=== PATIENT | female | born 1955 | race African-American/Black ===

== ENCOUNTER → 2016-08-17 | Outpatient (CLI) | payer MEDICAID ==
[2016-06-03 19:46] VITALS: BP 122/69
== END ==
LOC: RAD 20:30
PROVIDERS: ATTEND Internal Medicine
DX: R68.84 Jaw pain (principal); R22.0 Localized swelling, mass and lump, head

== ENCOUNTER → 2016-09-07 | Outpatient (CLI) | payer MEDICAID ==
[2016-06-03 19:46] VITALS: BP 122/69
--- NOTE | 2016-09-08 06:45 | RAD ---
Two views of the left hip Indication: Hip pain after fall. Findings: There is no acute fracture or dislocation within the left hip. Femoral acetabular joint sp aces are maintained. Pubic symphysis SI joints are intact. No localizing soft tissue swelling. Impression: No acute radiographic abnormality within the left hip. Reported By:
== END ==
LOC: RAD 15:29
PROVIDERS: ATTEND Internal Medicine
DX: M25.552 Pain in left hip (principal); Z91.81 History of falling
CPT/HCPCS: 73501

== ENCOUNTER 2016-11-16 12:05 | Emergency (ER) | payer MEDICAID ==
[2016-11-16 12:33] VITALS: BP 136/71; BMI 35.2
--- NOTE | 2016-11-16 13:29 | DR.GENAD ---
HPI - PCP Primary Care Physician: DR. GUTIÉRREZ - Complaint/Symptoms Chief Complaint Doctors Comments: Reproducible chest pain woth nausea since Sunday after her brothers . Chief Complaint:: PATIENT C/O CHEST PAIN SINCE LAST WEEK AND THAT YESTERDAY HER STOMACH HURT. RIGHT ARM PAIN. - Nurses notes reviewed Nurses Notes Review: Yes - Source History Provided: Patient, Skilled Nursing - Mode of Arrival Mode of Arrival: Stretcher - Timing Onset of Chief Complaint: 11/09/16 Came on: Gradually - Duration Duration: Intermittent - Severity Severity: Moderate - Modifying Factors Worsens:: touch to upper chest Improves:: rest - Associated Signs and Symptoms Associated Signs and Symptoms: right arm pain and nausea PMH - PMH Past Medical History: Yes Past Medical History: Anemia, Anxiety, Arthritis, Depression, Dyslipidemia, GERD , Hypertension, Kidney Stones, Seizures Past Surgical History: Yes Surgical History: Hysterectomy, Other - Family History History of Family Medical Conditions: Yes Family Medical History: Diabetes Mellitus, Heart Failure, Hypertension - Social History Does patient currently use any type of tobacco product: No Have you used tobacco products in the last 12 months: No Type of Tobacco Use: None Does any household member use tobacco: No Alcohol Use: None Do you use any recreational Drugs:: No Lives With: Other Lives Where: Skilled Nursing - infectious screening In the last 2 months have you had wt loss of >10#?: NO Have you had fever, night sweats or hemotysis?: No Have you traveled outside the country in the last 6 months?: No Isolation: Standard PE - Vital Signs Vitals: Temperature 97.6 F Pulse Rate 52 Respiratory Rate 20 Blood Pressure [Right Calf] 163/66 Blood Pressure [Right Arm] 105/67 Blood Pressure [Left Arm] 122/69 Blood Pressure 136/71 O2 Sat by Pulse Oximetry 99 ROR - Labs Reviewed Result Diagrams: 11/16/16 14:22 11/16/16 14:22 Laboratory: WBC 5.6 X10^3/uL (3.6-10.0) 11/16/16 14:22 RBC 3.97 X10^6/uL (3.5-5.4) 11/16/16 14:22 Hgb 11.2 g/dL (12.0-16.0) L 11/16/16 14:22 Hct 35.3 % (36.0-47.0) L 11/16/16 14:22 MCV 88.9 fL (80.0-100.0) 11/16/16 14:22 MCH 28.3 pg (27.0-34.0) 11/16/16 14:22 MCHC 31.9 g/dL (33.0-35.0) L 11/16/16 14:22 RDW 15.5 % (11.6-16.5) 11/16/16 14:22 Plt Count 130 X10^3/uL (150.0-450.0) L 11/16/16 14:22 MPV 9.0 fL (7.4-11.0) 11/16/16 14:22 Neut % 52.7 % (42.0-75.0) 11/16/16 14:22 Lymph % 33.2 % (21.0-51.0) 11/16/16 14:22 [place] % 11.8 % (0.0-13.0) 11/16/16 14:22 Eos % 2.0 % (0.9-2.9) 11/16/16 14:22 Baso % 0.3 % (0.2-1.0) 11/16/16 14:22 Neut # 2.9 x10^3/uL (2.2-4.8) 11/16/16 14:22 Lymph # 1.9 X10^3/uL (1.3-2.9) 11/16/16 14:22 [place] # 0.7 x10^3/uL (0.3-0.8) 11/16/16 14:22 Eos # 0.1 x10^3/uL (0.0-0.2) 11/16/16 14:22 Baso # 0.0 X10^3/uL (0.0-0.1) 11/16/16 14:22 Absolute Nucleated RBC 0.0 /100WBC 11/16/16 14:22 Sodium 143 mmol/L (136-145) 11/16/16 14:22 Corrected Sodium TNP 11/16/16 14:22 Potassium 4.2 mmol/L (3.5-5.1) 11/16/16 14:22 Chloride 109 mmol/L (98-107) H 11/16/16 14:22 Carbon Dioxide 27.0 mmol/L (21-32) 11/16/16 14:22 BUN 15 mg/dL (7-18) 11/16/16 14:22 Creatinine 0.74 mg/dL (0.55-1.02) 11/16/16 14:22 Est GFR (MDRD) Af Amer > 60 (>60) 11/16/16 14:22 Est GFR (MDRD) Non-Af > 60 (>60) 11/16/16 14:22 Glucose 81 mg/dL (65-99) 11/16/16 14:22 Calcium 8.5 mg/dL (8.5-10.1) 11/16/16 14:22 Corrected Calcium 9.1 mg/dL (8.5-10.1) 11/16/16 14:22 Total Bilirubin 0.30 mg/dL (0.2-1.0) 11/16/16 14:22 AST 14 Units/L (15-37) L 11/16/16 14:22 ALT 15 Units/L (12-78) 11/16/16 14:22 Alkaline Phosphatase 141 Units/L (46-116) H 11/16/16 14:22 Creatine Kinase 72 Units/L (26-192) 11/16/16 14:22 CK-MB (CK-2) < 1.0 ng/mL (0-4.0) 11/16/16 14:22 CK/CKMB % Calc 1.4 % (<4) 11/16/16 14:22 Troponin I < 0.02 ng/mL (0-1.5) 11/16/16 14:22 Total Protein 6.8 g/dL (6.4-8.2) 11/16/16 14:22 Albumin 3.3 g/dL (3.4-5.0) L 11/16/16 14:22 Globulin 3.5 g/dL (2.5-4.5) 11/16/16 14:22 Albumin/Globulin Ratio 0.9 Ratio (1.1-2.1) L 11/16/16 14:22 - Diagnosis Discharge Problem: Chest wall pain - Discharge Plan Disposition: 03 ER SNF Condition: Stable - Follow ups/Referrals Follow ups/Referrals: Jonathan Gutiérrez [Primary Care Provider] - 3 days - Instructions Instructions: Indigestion, [id number], Chest Wall Pain, [id number]
--- NOTE | 2016-11-16 14:06 | RAD ---
HISTORY: Chest pain Study: Chest one view Comparison: April 10, 2016 Findings: There is a port present on the right. Its tip is in the superior vena cava. The port follows a somew hat unusual course and clinical correlation as to proper function is recommended. The heart is enlar ged. No congestive heart failure is noted. The lungs are hypoinflated but clear. The bony thorax is unremarkable. IMPRESSION: Mild cardiomegaly without congestive heart failure Lungs hypoinflated but clear The course of the right port tube is somewhat unusual. Correlation as to the presence or absence of proper function is recommended. Reported By:
[2016-11-16 14:31] LABS: BASOPHILS % (AUTO) 0.3 % (0.2-1.0); EOSINOPHILS # (AUTO) 0.1 x10^3/uL (0.0-0.2); HEMATOCRIT 35.3 % (36.0-47.0); HEMOGLOBIN 11.2 g/dL (12.0-16.0); LYMPHOCYTES # (AUTO) 1.9 X10^3/uL (1.3-2.9); LYMPHOCYTES % (AUTO) 33.2 % (21.0-51.0); MEAN CORPUSCULAR HEMOGLOBIN 28.3 pg (27.0-34.0); MEAN CORPUSCULAR HGB CONC 31.9 g/dL (33.0-35.0); MEAN CORPUSCULAR VOLUME 88.9 fL (80.0-100.0); MONOCYTES # (AUTO) 0.7 x10^3/uL (0.3-0.8); MONOCYTES % (AUTO) 11.8 % (0.0-13.0); NEUTROPHILS # (AUTO) 2.9 x10^3/uL (2.2-4.8); NEUTROPHILS % (AUTO) 52.7 % (42.0-75.0); PLATELET COUNT 130 X10^3/uL (150.0-450.0); RED BLOOD COUNT 3.97 X10^6/uL (3.5-5.4); RED CELL DISTRIBUTION WIDTH 15.5 % (11.6-16.5); WHITE BLOOD COUNT 5.6 X10^3/uL (3.6-10.0)
[2016-11-16 14:48] LABS: BLOOD UREA NITROGEN 15 mg/dL (7-18); CALCIUM 8.5 mg/dL (8.5-10.1); CHLORIDE 109 mmol/L (98-107); CREATININE 0.74 mg/dL (0.55-1.02); GLUCOSE 81 mg/dL (65-99); SODIUM 143 mmol/L (136-145); TROPONIN I < 0.02 ng/mL (0-1.5); eGFR BLACK RACES > 60 (>60); eGFR NON BLACK RACES > 60 (>60)
[2016-11-16 14:53] LABS: ALANINE AMINOTRANSFERASE 15 Units/L (12-78); ALBUMIN 3.3 g/dL (3.4-5.0); ALKALINE PHOSPHATASE 141 Units/L (46-116); ASPARTATE AMINO TRANSFERASE 14 Units/L (15-37); CKMB % 1.4 % (<4); COR CA(FOR HYPOALB) 9.1 mg/dL (8.5-10.1); CREATINE KINASE 72 Units/L (26-192); CREATINE KINASE MB < 1.0 ng/mL (0-4.0); TOTAL PROTEIN 6.8 g/dL (6.4-8.2)
== END 2016-11-16 15:37 ==
LOC: ER 12:30
DX: R07.89 Other chest pain (principal); I51.7 Cardiomegaly
CPT/HCPCS: 36415; 36591; 71010; 80053; 82550; 82553; 84484; 85025; 93005; 96365; 96374; 99283

== ENCOUNTER → 2016-11-20 | Outpatient (CLI) | payer MEDICAID ==
[2016-11-16 12:33] VITALS: BP 136/71
--- NOTE | 2016-11-20 16:38 | RAD ---
HISTORY: Left shoulder pain status post fall Study: Left shoulder three view Comparison: None Findings: The clavicle, AC joint, scapula, glenohumeral joint, and proximal left humerus are intact. There is a fracture of the left lateral 3rd rib present. Impression: Fracture left lateral 3rd rib No significant abnormality in the shoulder Reported By:
== END ==
LOC: RAD 16:00
PROVIDERS: ATTEND Internal Medicine
DX: M25.512 Pain in left shoulder (principal); S22.32XA Fracture of one rib, left side, initial encounter for closed fracture; X58.XXXA Exposure to other specified factors, initial encounter
CPT/HCPCS: 73030

== ENCOUNTER → 2017-01-01 | Outpatient (CLI) | payer MEDICAID ==
--- NOTE | 2017-01-01 16:23 | RAD ---
HISTORY: Right posterior rib pain Study: Right rib series Comparison: 11/16/2016 Findings: There is a right IJ port noted. The lungs are clear without consolidation, effusion or pneumothorax. The cardiac and mediastinal contours are within normal limits. No definite displaced rib fracture is identified. The bony thorax appears intact. IMPRESSION: 1. No displaced rib fracture identified. 2. No acute cardiopulmonary abnormality. Reported By:
== END ==
LOC: RAD 15:12
PROVIDERS: ATTEND Internal Medicine
DX: R07.81 Pleurodynia (principal); X58.XXXA Exposure to other specified factors, initial encounter
CPT/HCPCS: 71111

== ENCOUNTER → 2017-01-17 | Outpatient (CLI) | payer MEDICAID ==
--- NOTE | 2017-01-18 08:44 | CT ---
Examination: CT of the right shoulder without contrast. Clinical history: Right shoulder pain from fall. Technique: Multiple axial images were obtained from the top of the acromioclavicular joint down to th e inferior portion of the scapula. Sagittal and coronal reformatted images were also obtained. Dose r eduction techniques including automated exposure control (AEC) and adjustment of mA and kV were utili zed. Comparison: X-rays of the right shoulder dated 01/05/2017. Findings: A MediPort type catheter is seen overlying the right hemithorax with the tip terminating in the super ior vena cava. There are mild osteoarthritic changes associated with the glenohumeral joint, with minor osteoarthrit ic changes also seen at the acromioclavicular joint. No acute fracture or dislocation is noted. Degenerative changes are noted in the visualized portion of the spine. The visualized portion of the right lung is unremarkable. No additional bony or soft tissue abnormali ty is noted. Impression: 1. No acute fracture or dislocation. 2. Arthropathy, as described above. Reported By:
== END | disposition home or self-care (01) | DRG 999 ==
LOC: RAD 16:05
PROVIDERS: ATTEND Internal Medicine
DX: W19.XXXA Unspecified fall, initial encounter (principal); M25.511 Pain in right shoulder; M13.811 Other specified arthritis, right shoulder
CPT/HCPCS: 73200

== ENCOUNTER 2017-05-21 18:20 | Emergency (ER) | payer MEDICAID ==
[2017-05-21 18:32] VITALS: BP 129/79; BMI 37.4
[2017-05-21 18:51] LABS: BASOPHILS % (AUTO) 0.7 % (0.2-1.0); EOSINOPHILS # (AUTO) 0.1 x10^3/uL (0.0-0.2); EOSINOPHILS % (AUTO) 2.9 % (0.9-2.9); HEMATOCRIT 36.2 % (36.0-47.0); HEMOGLOBIN 11.8 g/dL (12.0-16.0); LYMPHOCYTES # (AUTO) 2.5 X10^3/uL (1.3-2.9); LYMPHOCYTES % (AUTO) 50.7 % (21.0-51.0); MEAN CORPUSCULAR HEMOGLOBIN 28.8 pg (27.0-34.0); MEAN CORPUSCULAR HGB CONC 32.6 g/dL (33.0-35.0); MEAN CORPUSCULAR VOLUME 88.4 fL (80.0-100.0); MEAN PLATELET VOLUME 8.7 fL (7.4-11.0); MONOCYTES # (AUTO) 0.6 x10^3/uL (0.3-0.8); MONOCYTES % (AUTO) 12.5 % (0.0-13.0); NEUTROPHILS # (AUTO) 1.7 x10^3/uL (2.2-4.8); NEUTROPHILS % (AUTO) 33.2 % (42.0-75.0); PLATELET COUNT 150 X10^3/uL (150.0-450.0); RED CELL DISTRIBUTION WIDTH 14.7 % (11.6-16.5)
[2017-05-21 19:05] LABS: BLOOD UREA NITROGEN 12 mg/dL (7-18); CALCIUM 8.5 mg/dL (8.5-10.1); CARBON DIOXIDE 25.5 mmol/L (21-32); CHLORIDE 107 mmol/L (98-107); CREATININE 0.97 mg/dL (0.55-1.02); SODIUM 140 mmol/L (136-145); TROPONIN I < 0.02 ng/mL (0-1.5); eGFR BLACK RACES > 60 (>60); eGFR NON BLACK RACES > 60 (>60)
[2017-05-21 19:10] LABS: ALANINE AMINOTRANSFERASE 18 Units/L (12-78); ALKALINE PHOSPHATASE 134 Units/L (46-116); ASPARTATE AMINO TRANSFERASE 17 Units/L (15-37); CKMB % 1.7 % (<4); COR CA(FOR HYPOALB) 9.3 mg/dL (8.5-10.1); CREATINE KINASE 124 Units/L (26-192); CREATINE KINASE MB 2.1 ng/mL (0-4.0)
--- NOTE | 2017-05-21 19:11 | CT ---
HISTORY: Dizziness status post fall. Study: CT brain without contrast Comparison: CT head dated January 05, 2017. Technique: Multiple axial images of the brain were obtained from the skull base to the vertex without administra tion of IV contrast. Dose reduction techniques including Automated Exposure Control (AEC) and adjust ment of mA and kV were utilized. Findings: Age-related cortical atrophy and chronic small vessel ischemic changes. Remote occipital infarcts gerardo ear unchanged. No acute intraparenchymal hemorrhage or mass can be identified. No extra-axial fluid collections are seen. No alteration in the attenuation of the brain parenchyma can be identified to suggest acute or subacute ischemic change. The ventricular system is symmetric and nondilated. Moder ate mucosal thickening of the ethmoidal air cells and bilateral maxillary sinuses. Remaining visualiz ed paranasal sinuses and mastoid air cells are clear. The osseous structures are intact. IMPRESSION: No acute intracranial pathology. Reported By:
--- NOTE | 2017-05-21 19:14 | RAD ---
Examination: AP wheelchair chest History: Fell, dizzy and chest pain Comparison reference 01/01/2017 Findings: Normal and stable heart size with clear lungs. There is no evidence for pneumothorax or ple ural fluid. Healed left rib fracture. Stable position of right injection port in the SVC. Impression: No acute abnormality demonstrated. Reported By:
[2017-05-21] MEDS ORDERED: ROCEPHIN VIAL 1 GM IM ONE (19:52)
[2017-05-21] MEDS ORDERED: TESSALON PERLES PO ONE (19:54)
--- NOTE | 2017-05-21 19:55 | DR.GENAD ---
HPI - PCP Primary Care Physician: roverto - Complaint/Symptoms Chief Complaint:: pt states" i fell hit my head i gots a headache. my chest has been hurting and i been coughing for a week" pt has no visble injury noted to head or face - Nurses notes reviewed Nurses Notes Review: Yes - Source History Provided: Patient, Long Term - Mode of Arrival Mode of Arrival: Wheelchair - Timing Onset of Chief Complaint: 05/21/17 - Severity Severity: Moderate PMH - PMH Past Medical History: Yes Past Medical History: Anemia, Anxiety, Arthritis, Depression, Dyslipidemia, GERD , Hypertension, Kidney Stones, Seizures Past Surgical History: Yes Surgical History: Hysterectomy, Other - Family History History of Family Medical Conditions: Yes Family Medical History: Diabetes Mellitus, Heart Failure, Hypertension - Social History Does any household member use tobacco: No Alcohol Use: None Do you use any recreational Drugs:: No Lives With: Other Lives Where: Long Term - infectious screening In the last 2 months have you had wt loss of >10#?: NO Have you had fever, night sweats or hemotysis?: No Have you traveled outside the country in the last 6 months?: No Isolation: Standard PE - Vital Signs Vitals: Temperature 98.6 F Pulse Rate 69 Respiratory Rate 20 Blood Pressure [Right Calf] 163/66 Blood Pressure [Right Arm] 105/67 Blood Pressure [Left Arm] 122/69 Blood Pressure 129/79 O2 Sat by Pulse Oximetry 100 ROR - Labs Reviewed Result Diagrams: 05/21/17 18:44 05/21/17 18:44 Laboratory: WBC 5.0 X10^3/uL (3.6-10.0) 05/21/17 18:44 RBC 4.10 X10^6/uL (3.5-5.4) 05/21/17 18:44 Hgb 11.8 g/dL (12.0-16.0) L 05/21/17 18:44 Hct 36.2 % (36.0-47.0) 05/21/17 18:44 MCV 88.4 fL (80.0-100.0) 05/21/17 18:44 MCH 28.8 pg (27.0-34.0) 05/21/17 18:44 MCHC 32.6 g/dL (33.0-35.0) L 05/21/17 18:44 RDW 14.7 % (11.6-16.5) 05/21/17 18:44 Plt Count 150 X10^3/uL (150.0-450.0) 05/21/17 18:44 MPV 8.7 fL (7.4-11.0) 05/21/17 18:44 Neut % 33.2 % (42.0-75.0) L 05/21/17:44 Lymph % 50.7 % (21.0-51.0) 05/21/17 18:44 Wirt % 12.5 % (0.0-13.0) 05/21/17 18:44 Eos % 2.9 % (0.9-2.9) 05/21/17:44 Baso % 0.7 % (0.2-1.0) 05/21/17:44 Neut # 1.7 x10^3/uL (2.2-4.8) L 05/21/17: Lymph # 2.5 X10^3/uL (1.3-2.9) 05/21/17 18:44 Wirt # 0.6 x10^3/uL (0.3-0.8) 05/21/17:44 Eos # 0.1 x10^3/uL (0.0-0.2) 05/21/17:44 Baso # 0.0 X10^3/uL (0.0-0.1) 05/21/17 18:44 Absolute Nucleated RBC 0.1 /100WBC 05/21/17 18:44 Sodium 140 mmol/L (136-145) 05/21/17 18:44 Corrected Sodium TNP 05/21/17 18:44 Potassium 3.8 mmol/L (3.5-5.1) 05/21/17 18:44 Chloride 107 mmol/L (98-107) 05/21/17 18:44 Carbon Dioxide 25.5 mmol/L (21-32) 05/21/17 18:44 BUN 12 mg/dL (7-18) 05/21/17 18:44 Creatinine 0.97 mg/dL (0.55-1.02) 05/21/17 18:44 Est GFR (MDRD) Af Amer > 60 (>60) 01/08/18 18:44 Est GFR (MDRD) Non-Af > 60 (>60) 05/21/17 18:44 Glucose 90 mg/dL (65-99) 05/21/17 18:44 Calcium 8.5 mg/dL (8.5-10.1) 05/21/17 18:44 Corrected Calcium 9.3 mg/dL (8.5-10.1) 05/21/17 18:44 Total Bilirubin 0.20 mg/dL (0.2-1.0) 05/21/17 18:44 AST 17 Units/L (15-37) 05/21/17 18:44 ALT 18 Units/L (12-78) 05/21/17 18:44 Alkaline Phosphatase 134 Units/L (46-116) H 05/21/17 18:44 Creatine Kinase 124 Units/L (26-192) 05/21/17 18:44 CK-MB (CK-2) 2.1 ng/mL (0-4.0) 05/21/17 18:44 CK/CKMB % Calc 1.7 % (<4) 05/21/17 18:44 Troponin I < 0.02 ng/mL (0-1.5) 05/21/17 18:44 Total Protein 7.0 g/dL (6.4-8.2) 05/21/17 18:44 Albumin 3.0 g/dL (3.4-5.0) L 05/21/17 18:44 Globulin 4.0 g/dL (2.5-4.5) 05/21/17 18:44 Albumin/Globulin Ratio 0.8 Ratio (1.1-2.1) L 05/21/17 18:44 - Discharge Plan Condition: Stable Prescriptions: Benzonatate [TESSALON PERLES *] 200 mg PO TID PRN #30 cap PRN Reason: Cough Cefdinir [Omnicef Cap 300 mg] 300 mg PO BID #20 cap - Follow ups/Referrals Follow ups/Referrals: Jonathan Quijano [Primary Care Provider] - 3 days - Instructions Instructions: Headache and Arthritis, Acute Bronchitis, [id number] Additional Instructions: RERTURN TO ED IF WORSE.
[2017-05-21] MEDS ORDERED: XYLOCAINE 1 % (PLAIN) ONE (19:59)
[2017-05-21] MEDS ORDERED: ROCEPHIN VIAL 1 GM ONE (20:00)
== END 2017-05-21 20:10 | disposition home or self-care (01) ==
LOC: ER 19:08
DX: J20.9 Acute bronchitis, unspecified (principal); R51 Headache; M19.90 Unspecified osteoarthritis, unspecified site; R05 Cough; W19.XXXA Unspecified fall, initial encounter; Y92.9 Unspecified place or not applicable
CPT/HCPCS: 36415; 70450; 71045; 80053; 82550; 82553; 84484; 85025; 93005; 96372; 99282; 99283; J0696; J2001

== ENCOUNTER → 2017-07-04 | Outpatient (CLI) | payer MEDICAID ==
--- NOTE | 2017-07-05 03:27 | CT ---
CT HEAD WITHOUT CONTRAST CLINICAL HISTORY: 62-year-old female status post fall. COMPARISON: CT head 05/21/2017. TECHNIQUE: Multiple, non-contrasted axial CT images were obtained from the skull base to the cranial vertex. Coronal and sagittal reformats were performed. FINDINGS: There are no abnormal intra- or extra-axial fluid collections, midline shift, or mass effec t. Rowe-white differentiation is normal. Global cortical involutional changes are present that are ad vanced for the patient's stated age. The ventricular system is mildly enlarged but commensurate with the degree of sulcal prominence. Bilateral chronic ischemic insult within the occipital lobes with as sociated encephalomalacia. Periventricular and supraventricular white matter hypodensity is present t hat is nonspecific in appearance, but most likely to represent microvascular ischemic changes. Athero sclerotic vascular calcification is present within the carotid siphons. The imaged paranasal sinuses, mastoid air cells, and tympanic spaces are clear. IMPRESSION: 1. No definite evidence of an acute intracranial process. 2. Chronic infarctions bilateral occipital lobe with associated encephalomalacia are stable. 3. Severe microvascular white matter ischemic changes, with associated volume loss. Reported By:
== END ==
LOC: RAD 11:04
PROVIDERS: ATTEND Internal Medicine
DX: S09.90XA Unspecified injury of head, initial encounter (principal); W19.XXXA Unspecified fall, initial encounter
CPT/HCPCS: 70450

== ENCOUNTER → 2017-08-03 | Outpatient (CLI) | payer MEDICAID | LOC: RAD 11:06 | PROVIDERS: ATTEND Internal Medicine | DX: M25.511 Pain in right shoulder (principal) | CPT/HCPCS: 73030 ==

== ENCOUNTER 2017-09-14 19:27 | Emergency (ER) | payer MEDICAID ==
[2017-09-14 19:39] VITALS: BMI 37.5
--- NOTE | 2017-09-14 19:45 | DR.GENAD ---
HPI - PCP Primary Care Physician: BROCK - Complaint/Symptoms Chief Complaint:: SHAKING, HTN, HEADACHE - Nurses notes reviewed Nurses Notes Review: Yes - Source History Provided: Patient, Care Home - Mode of Arrival Mode of Arrival: Stretcher - Timing Onset of Chief Complaint: 09/14/17 <BHUMI BARRAGAN - Last Filed: 09/14/17 20:09> - Complaint/Symptoms Chief Complaint Doctors Comments: Family member states patient sent from the senior living for evaluation of shaking and high blood pressure. Family member states she has a history of seizures and has two different types of seizures and she is taking medicines for seizures. Patient states she had a seizure three days ago in the senior living. Family states she has cancer of the tongue and she is going to ENT in [place] for treatments. Sister states her face swells from time to time and has been swelling recently. States she is taking antibiotics for UTI that she just started the other day from her doctor. States she is a patient of Dr. Quijano. Sister states that she always has a headache. She denies any recent trauma. She denies fever, chills, nausea or vomiting. - Nurses notes reviewed Nurses Notes Review: Yes - Source History Provided: Patient, Family Member, Care Home - Timing Came on: Gradually - Duration Duration: Unknown - Location Location: shaking episode - Severity Severity: None - Modifying Factors Worsens:: nothing Improves:: nothing <FILIPPO CLIFTON - Last Filed: 09/14/17 21:03> PMH - PMH Past Medical History: Yes Past Medical History: Anemia, Anxiety, Arthritis, Depression, Dyslipidemia, GERD , Hypertension, Kidney Stones, Seizures Past Surgical History: Yes Surgical History: Hysterectomy, Other - Family History History of Family Medical Conditions: Yes Family Medical History: Diabetes Mellitus, Heart Failure, Hypertension - Social History Does patient currently use any type of tobacco product: No Have you used tobacco products in the last 12 months: No Type of Tobacco Use: None Does any household member use tobacco: No Alcohol Use: None Do you use any recreational Drugs:: No Lives With: Other Lives Where: Care Home - infectious screening In the last 2 months have you had wt loss of >10#?: NO Have you had fever, night sweats or hemotysis?: No Have you traveled outside the country in the last 6 months?: No Isolation: Standard <BHUMI BARRAGAN - Last Filed: 09/14/17 20:09> ROS - Review of Systems Constitutional: No Symptoms Reported. negative: See HPI, Chills, Diaphoresis, Fever, Malaise, Weakness, Irritable, Fatigue, Loss of Appetite, Other ENTM: No Symptoms Reported, Mouth Swelling. negative: See HPI, Ear Pain, Ear Discharge, Pulling on Ears, Hearing Loss, Nose Pain, Nose Discharge, Epistaxis, Nose Congestion, Mouth Pain, Loose Teeth, Drooling, Throat Pain, Throat Swelling , Ear Foreign Body Respiratoy: No Symptoms Reported Cardiovascular: No Symptoms Reported. negative: See HPI, Chest Pain, Edema, Palpitations, Syncope, Cyanosis, Skin Mottling, Other Gastrointestinal/Abdominal: No Symptoms Reported Genitourinary: No Symptoms Reported Neurological: No Symptoms Reported, Headache, Seizure, Problems Walking Musculoskeletal: No Symptoms Reported Integumentary: No Symptoms Reported Hematologic/Lymphatic: No Symptoms Reported. negative: See HPI, Anemia, Blood Clots, Easy Bleeding, Easy Bruising, Swollen Glands, Lymphadenopathy, Other Endocrine: No Symptoms Reported Psychiatric: No Symptoms Reported <FILIPPO CLIFTON - Last Filed: 09/14/17 21:03> PE - General Limitations: No Limitations General Appearance: Alert, In No Apparent Distress, Obese - Head Head Exam: Normal Inspection, Atraumatic, Normocephalic - Eyes Eye exam: Normal Appearance, PERRL, EOMI. negative: Scleral Icterus, Conjunctival Injection, Nystagmus, Miosis, Mydrasis, Periorbital Swelling, Periorbital Tenderness, Other - ENT ENT Exam: Normal Exam, Normal Oropharynx, Normal External Ear Exam, Mucous Membranes Moist (tongue with swelling and small ulceration at tip;no active bleeding), TM's Normal Bilaterally External Ear Exam: Normal External Inspection TM/Canal Exam: Bilateral Normal Nose Exam: Normal Nose Exam Mouth Exam: Normal Inspection, Lip Swelling, Tongue Swelling Throat Exam: Normal Inspection - Neck Neck Exam: Normal Inspection, Full ROM, Trachea Midline. negative: Tenderness, Meningismus, Lymphadenopathy, Thyromegaly, Other - Chest Chest Inspection: Normal Inspection, Symmetric Chest Wall Rise - Respiratory Respiratory Exam: Normal Lung Sounds Bilat Respiratory Exam: Bilateral Clear to Auscultation - Cardiovascular Cardiovascular Exam: Regular Rate, Normal Rhythm - Abdominal Exam Abdominal Exam: Normal Inspection, Normal Bowel Sounds Abdominal Tenderness: negative: RUQ, RLQ, LUQ, LLQ, Epigastrium, Suprapubic, Diffuse, Mild, Moderate, Severe, Other - Extremities Extremities Exam: Normal Inspection, Full ROM, Normal Capillary Refill - Back Back Exam: Normal Inspection, Full ROM - Neurologic Neurological Exam: Alert, Oriented X3, CN II-XII Intact, Reflexes Normal. negative: Normal Gait (gait not tested) - Psychiatric Psychiatric Exam: Normal Affect, Normal Mood - Skin Skin Exam: Warm, Dry, Intact, Normal Color <FILIPPO CLIFTON - Last Filed: 09/14/17 21:03> - Vital Signs Vitals: Temperature 98.7 F Pulse Rate 120 Respiratory Rate 24 Blood Pressure [Right Calf] 163/66 Blood Pressure [Right Arm] 105/67 Blood Pressure [Left Arm] 122/69 Blood Pressure 184/105 O2 Sat by Pulse Oximetry 100 ROR - Labs Reviewed Result Diagrams: 09/14/17 20:01 09/14/17 20:01 <BHUMI BARRAGAN - Last Filed: 09/14/17 20:09> - Labs Reviewed Laboratory Results Reviewed?: Yes (All labs and x-ray results reviewed and discussed with patient) Result Diagrams: 09/14/17 20:01 09/14/17 20:01 - XRAY XRAY Interpreted by: Radiologist (CT head: No acute intracranial hemorrhage. Moderate atrophic changes, similar to prior with microangiopathy) XRAY Findings: CXR: Cardiomegaly <FILIPPO CLIFTON - Last Filed: 09/14/17 21:03> - Labs Reviewed Laboratory: WBC 6.6 X10^3/uL (3.6-10.0) 09/14/17 20:01 RBC 4.14 X10^6/uL (3.5-5.4) 09/14/17 20:01 Hgb 12.2 g/dL (12.0-16.0) 09/14/17 20:01 Hct 37.5 % (36.0-47.0) 09/14/17 20:01 MCV 90.6 fL (80.0-100.0) 09/14/17 20:01 MCH 29.5 pg (27.0-34.0) 09/14/17 20:01 MCHC 32.5 g/dL (33.0-35.0) L 09/14/17 20:01 RDW 16.1 % (11.6-16.5) 09/14/17 20:01 Plt Count 130 X10^3/uL (150.0-450.0) L 09/14/17 20:01 MPV 8.8 fL (7.4-11.0) 09/14/17 20:01 Neut % (Auto) 45.0 % (42.0-75.0) 09/14/17 20:01 Lymph % (Auto) 42.8 % (21.0-51.0) 09/14/17 20:01 [place]on % (Auto) 9.7 % (0.0-13.0) 09/14/17 20:01 Eos % (Auto) 2.1 % (0.9-2.9) 09/14/17 20:01 Baso % (Auto) 0.4 % (0.2-1.0) 09/14/17 20:01 Neut # (Auto) 3.0 x10^3/uL (2.2-4.8) 09/14/17 20:01 Lymph # (Auto) 2.8 X10^3/uL (1.3-2.9) 09/14/17 20:01 [place] # (Auto) 0.6 x10^3/uL (0.3-0.8) 09/14/17 20:01 Eos # (Auto) 0.1 x10^3/uL (0.0-0.2) 09/14/17 20:01 Baso # (Auto) 0.0 X10^3/uL (0.0-0.1) 09/14/17 20:01 Absolute Nucleated RBC 0.0 /100WBC 09/14/17 20:01 Sodium 143 mmol/L (136-145) 09/14/17 20:01 Corrected Sodium 144 mmol/L (136-145) 09/14/17 20:01 Potassium 3.8 mmol/L (3.5-5.1) 09/14/17 20:01 Chloride 107 mmol/L (98-107) 09/14/17 20:01 Carbon Dioxide 24.2 mmol/L (21-32) 09/14/17 20:01 BUN 23 mg/dL (7-18) H 09/14/17 20:01 Creatinine 1.07 mg/dL (0.55-1.02) H 09/14/17 20:01 Est GFR (MDRD) Af Amer > 60 (>60) 09/14/17 20:01 Est GFR (MDRD) Non-Af 55 (>60) L 09/14/17 20:01 Glucose 121 mg/dL (65-99) H 09/14/17 20:01 Calcium 9.5 mg/dL (8.5-10.1) 09/14/17 20:01 Corrected Calcium TNP 09/14/17 20:01 Total Bilirubin 0.30 mg/dL (0.2-1.0) 09/14/17 20:01 AST 17 Units/L (15-37) 09/14/17 20:01 ALT 20 Units/L (12-78) 09/14/17 20:01 Alkaline Phosphatase 152 Units/L (46-116) H 09/14/17 20:01 Creatine Kinase 179 Units/L (26-192) 09/14/17 20:01 CK-MB (CK-2) 1.2 ng/mL (0-4.0) 09/14/17 20:01 CK/CKMB % Calc 0.7 % (<4) 09/14/17 20:01 Troponin I < 0.02 ng/mL (0-1.5) 09/14/17 20:01 Total Protein 8.3 g/dL (6.4-8.2) H 09/14/17 20:01 Albumin 4.4 g/dL (3.4-5.0) 09/14/17 20:01 Globulin 3.9 g/dL (2.5-4.5) 09/14/17 20:01 Albumin/Globulin Ratio 1.1 Ratio (1.1-2.1) 09/14/17 20:01 <BHUMI BARRAGAN - Last Filed: 09/14/17 20:09> <FILIPPO CLIFTON - Last Filed: 09/14/17 21:03> - Diagnosis Discharge Problem: Seizure disorder, Diabetes mellitus, Cerebrovascular accident, old, Squamous cell carcinoma of tongue - Discharge Plan Disposition: XFER SNF Condition: Stable - Follow ups/Referrals Follow ups/Referrals: Jonathan Quijano [Primary Care Provider] - 3 days - Instructions Instructions: Type 2 Diabetes Mellitus, Diagnosis, Adult, Epilepsy, Easy-to- Read
--- NOTE | 2017-09-14 20:06 | CT ---
CT head without contrast Indication: Altered mental status. Comparison: 07/04/2017 Technique: Axial images from the skullbase to the vertex without contrast. Findings: There is mild moderate cerebral atrophy with ex vacuo ventricular and sulcal enlargement. N o acute intracranial hemorrhage seen. No extra-axial fluid collection identified. No large area of hy poattenuation suggest infarction seen. Bone windows shows no osseous lesion. Mild fluid seen in the m astoid air cells dependently. Paranasal sinuses are clear. Impression: 1. No acute intracranial hemorrhage 2. Moderate atrophic changes, similar to the prior with microangiopathy Reported By:
[2017-09-14 20:08] LABS: BASOPHILS % (AUTO) 0.4 % (0.2-1.0); EOSINOPHILS # (AUTO) 0.1 x10^3/uL (0.0-0.2); EOSINOPHILS % (AUTO) 2.1 % (0.9-2.9); HEMATOCRIT 37.5 % (36.0-47.0); HEMOGLOBIN 12.2 g/dL (12.0-16.0); LYMPHOCYTES # (AUTO) 2.8 X10^3/uL (1.3-2.9); LYMPHOCYTES % (AUTO) 42.8 % (21.0-51.0); MEAN CORPUSCULAR HEMOGLOBIN 29.5 pg (27.0-34.0); MEAN CORPUSCULAR HGB CONC 32.5 g/dL (33.0-35.0); MEAN CORPUSCULAR VOLUME 90.6 fL (80.0-100.0); MEAN PLATELET VOLUME 8.8 fL (7.4-11.0); MONOCYTES # (AUTO) 0.6 x10^3/uL (0.3-0.8); MONOCYTES % (AUTO) 9.7 % (0.0-13.0); PLATELET COUNT 130 X10^3/uL (150.0-450.0); RED BLOOD COUNT 4.14 X10^6/uL (3.5-5.4); RED CELL DISTRIBUTION WIDTH 16.1 % (11.6-16.5); WHITE BLOOD COUNT 6.6 X10^3/uL (3.6-10.0)
--- NOTE | 2017-09-14 20:11 | RAD ---
Chest AP portable Indication: Altered mental status Comparison: 05/21/2017 radiograph Findings: Port-A-Cath tip projects over the SVC. There is cardiomegaly. Mild increased interstitial m arkings noted. Body habitus and positioning limits sensitivity somewhat as do the overlying monitorin g leads . There is no pneumothorax, effusion or consolidation Impression: Cardiomegaly, with borderline edema. No other acute abnormality seen. Reported By:
[2017-09-14 20:24] LABS: BLOOD UREA NITROGEN 23 mg/dL (7-18); CALCIUM 9.5 mg/dL (8.5-10.1); CARBON DIOXIDE 24.2 mmol/L (21-32); CHLORIDE 107 mmol/L (98-107); COR NA(FOR HYPERGLY) 144 mmol/L (136-145); CREATININE 1.07 mg/dL (0.55-1.02); SODIUM 143 mmol/L (136-145); TROPONIN I < 0.02 ng/mL (0-1.5); eGFR BLACK RACES > 60 (>60); eGFR NON BLACK RACES 55 (>60)
[2017-09-14 20:29] LABS: ALANINE AMINOTRANSFERASE 20 Units/L (12-78); ALBUMIN 4.4 g/dL (3.4-5.0); ALKALINE PHOSPHATASE 152 Units/L (46-116); ASPARTATE AMINO TRANSFERASE 17 Units/L (15-37); CKMB % 0.7 % (<4); CREATINE KINASE 179 Units/L (26-192); CREATINE KINASE MB 1.2 ng/mL (0-4.0); TOTAL PROTEIN 8.3 g/dL (6.4-8.2)
[2017-09-14 21:20] VITALS: BP 185/75
== END 2017-09-14 21:21 ==
LOC: ER 19:27
DX: G40.909 Epilepsy, unspecified, not intractable, without status epilepticus (principal); E11.9 Type 2 diabetes mellitus without complications; Z86.73 Personal history of transient ischemic attack (TIA), and cerebral infarction without residual deficits; C02.9 Malignant neoplasm of tongue, unspecified
CPT/HCPCS: 36415; 70450; 71045; 80053; 82550; 82553; 84484; 85025; 99282; 99283

== ENCOUNTER → 2017-09-17 | Outpatient (CLI) | payer MEDICAID ==
[2017-09-14 21:20] VITALS: BP 185/75
--- NOTE | 2017-09-17 09:45 | CT ---
Indication: Neck pain and seizures. Exam: CT neck without contrast. Technique: Axial spiral images were obtained from the base the skull through the clavicles without co ntrast. Comparison: 11/02/2015 Findings: The exam is limited due the lack of contrast. There is an old cortical infarct along the le ft occipital lobe which is unchanged. The visualized orbits are unremarkable. The nasopharynx is unre markable. The parotid and submandibular glands are normal size and density. The nasopharynx is unrema rkable. There is mild symmetric enlargement of the lingular tonsils with some punctate calcifications bilaterally which is more prominent. No obvious mass or inflammation is seen. The parotid and subman dibular glands are normal size and density and the parapharyngeal soft tissues are normal. The epiglo ttis and glottis are unremarkable. The thyroid gland is mildly enlarged and heterogeneous with a calc ification along the isthmus. There is a right Port-A-Cath in place and with the tip extending into th e superior vena cava. The visualized lung apices are clear. There is no supraclavicular mass or adeno lalo. There are small lymph nodes scattered along the proximal internal jugular chain bilaterally me asuring up to 6-7 mm. There are some small lymph nodes along the left supraclavicular region measurin g up to 1.2 cm which are unchanged. Degenerative changes are seen in the spine with no aggressive oss eous lesion. There is prominent medial deviation of both carotid bifurcations with moderate plaque al melissa the bifurcations , extending along the prevertebral soft region. Impression: Slightly limited exam due to the lack of contrast. Small shotty lymph nodes along the upper neck and small supraclavicular lymph nodes on the left measu ring up to 1.2 cm which are not significantly changed. Recommend clinical follow-up. Mild chronic tonsillitis which is more prominent with no mass or inflammation. Mild heterogeneous thyroid goiter which is unchanged. Right Port-A-Cath in place which is unchanged. Moderate calcified plaque along both carotid bifurcations with prominent medial deviation and tortuos ity of both bifurcations along the prevertebral soft tissues. Suggest ultrasound correlation , if ind icated. 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 Reported By:
== END ==
LOC: RAD 08:41
PROVIDERS: ATTEND Internal Medicine
DX: C02.9 Malignant neoplasm of tongue, unspecified (principal)
CPT/HCPCS: 70490

== ENCOUNTER → 2017-10-02 | Outpatient (CLI) | payer MEDICAID ==
[2017-09-14 21:20] VITALS: BP 185/75
--- NOTE | 2017-10-02 12:47 | RAD ---
Indication: Pain Exam: Left shoulder series. Technique: AP and axillary views. Comparison: 11/20/2016 Findings: The glenohumeral joint is intact. No fracture or dislocation is seen. There are mild hypert rophic changes of the AC joint which are more prominent. There are old rib fractures seen laterally o n the left. The bones are osteopenic. Impression: Mild hypertrophic changes of the AC joint which is more prominent with no acute abnormality seen. Reported By:
== END | disposition home or self-care (01) ==
LOC: RAD 11:27
PROVIDERS: ATTEND Internal Medicine
DX: M25.512 Pain in left shoulder (principal)
CPT/HCPCS: 73030

== ENCOUNTER 2018-06-10 16:38 | Observation (INO) ==
--- NOTE | 2018-06-10 17:52 | DR.CP ---
HPI Time Seen Time Seen by Provider: 06/10/18 17:51 PCP Primary Care Physician: BROCK HPI Comment HPI Comment: PAIN RADIATED TO RIGHT ARM. WORSE TODAY. NO FEVER. SOB. RESIDES IN THE CORRECTION. Complaint Chief Complaint Doctor Comments: CHEST PAIN TIMES 2 DAYS. Chief Complaint:: PT TO ER PER [facility] STAFF AND SHE STATES PT HAD C/P SINCE SUNDAY ,,BR PATIENT STATED THAT PAIN IS GOING ACROSS HER CHEST AND RADIATING DOWN RIGHT ARM THAT HAS BEEN CONSTANT SINCE SUNDAY, KN Reviewed Nurses Notes Review: Yes Source History Provided: Patient Mode of Arrival Mode of Arrival: Stretcher Timing Onset of Chief Complaint: 06/08/18 Came on: Suddenly Pain: Present Now Duration Duration: Intermittent Duration: Days Location Location of Chest Pain: Chest Chest Pain Radiation Location: Right Arm Context Onset: At rest and With light exertion Cardiac Risk Factors: Hyperlipidemia and HTN PE Risk Factors: Immobilization History of: None Quality Quality: Sharp Severity Severity: Moderate Modifying Factors Worsens: Exertion Impoves: Nothing Associated Signs and Symptoms Associated Signs and Symptoms: Shortness of Breath PMH PMH Past Medical History: Yes Past Medical History: Anemia, Anxiety, Arthritis, Depression, Dyslipidemia, GERD, Hypertension, Kidney Stones and Seizures Past Surgical History: Yes Surgical History: Hysterectomy and Other Family History History of Family Medical Conditions: Yes Family Medical History: Diabetes Mellitus, Heart Failure and Hypertension Social History Does patient currently use any type of tobacco product: No Have you used tobacco products in the last 12 months: No Type of Tobacco Use: None Does any household member use tobacco: No Alcohol Use: None Do you use any recreational Drugs:: No Lives With: Family Lives Where: Home infectious screening In the last 2 months have you had wt loss of >10#?: NO Have you had fever, night sweats or hemotysis?: No Have you traveled outside the country in the last 6 months?: No Isolation: Standard ROS Review of Systems Constitutional: Weakness and Fatigue Eyes: No Symptoms Reported ENTM: No Symptoms Reported Respiratoy: Short of Breath Cardiovascular: No Symptoms Reported Gastrointestinal/Abdominal: No Symptoms Reported Genitourinary: No Symptoms Reported Neurological: Weakness and Other (MR) Musculoskeletal: No Symptoms Reported Integumentary: No Symptoms Reported Hematologic/Lymphatic: Easy Bleeding and Easy Bruising Endocrine: No Symptoms Reported Psychiatric: Other (MR) All Other Systems: Reviewed and Negative PE Vitals Vitals: Temperature 98.3 F Pulse Rate [Apical] 67 Pulse Rate 76 Respiratory Rate 18 Blood Pressure [Right Calf] 163/66 Blood Pressure [Right Arm] 114/66 Blood Pressure [Left Arm] 122/69 Blood Pressure 148/84 O2 Sat by Pulse Oximetry 97 General Limitations: Other (MRNoah) General Appearance: Alert and In No Apparent Distress Head Head Exam: Normal Inspection Eyes Eye exam: PERRL and EOMI; negative Scleral Icterus and Conjunctival Injection ENT ENT Exam: Normal External Ear Exam Chest Chest Inspection: Symmetric Chest Wall Rise Respiratory Respiratory Exam: Normal Lung Sounds Bilat Respiratory Exam: Bilateral: Rhonchi and Lower: Rhonchi Cardiovascular Cardiovascular Exam: Regular Rate and Normal Rhythm Pulse: Normal Edema: Normal Abdominal Exam Abdominal Exam: Normal Inspection, Normal Bowel Sounds and Soft Extremities Extremities Exam: Normal Inspection Back Back Exam: Normal Inspection Neurologic Neurological Exam: Alert and Oriented X3; negative Motor Sensory Deficit Psychiatric Psychiatric Exam: Normal Affect and Normal Mood Skin Skin Exam: Warm, Dry, Intact and Normal Color MDM Differential Diagnosis Differential Diagnosis: Chest Wall Pain, CHF, Costochondritis, Gastritis, Myocardial Infarction, Pericarditis, Pneumonia and Pneumothorax COURSE Treatment Treatment: SEE ORDERS. Consultation Consultation Comments: DISCUSS PATIENT WITH DR. MAYS. HE WILL ADMIT PATIENT. Education/Counseling Education/Counseling: Patient Educated On: Diagnosis ROR Labs Reviewed Laboratory Results Reviewed?: Yes Result Diagrams: 06/10/18 18:13 06/10/18 18:13 Laboratory: WBC 7.4 X10^3/uL (3.6-10.0) 06/10/18 18:13 RBC 4.26 X10^6/uL (3.5-5.4) 06/10/18 18:13 Hgb 12.8 g/dL (12.0-16.0) 06/10/18 18:13 Hct 39.3 % (36.0-47.0) 06/10/18 18:13 MCV 92.3 fL (80.0-100.0) 06/10/18 18:13 MCH 30.1 pg (27.0-34.0) 06/10/18 18:13 MCHC 32.7 g/dL (33.0-35.0) L 06/10/18 18:13 RDW 14.5 % (11.6-16.5) 06/10/18 18:13 Plt Count 139 X10^3/uL (150.0-450.0) L 06/10/18 18:13 MPV 9.4 fL (7.4-11.0) 06/10/18 18:13 Neut % (Auto) 56.1 % (42.0-75.0) 06/10/18 18:13 Lymph % (Auto) 27.0 % (21.0-51.0) 06/10/18 18:13 [place] % (Auto) 15.1 % (0.0-13.0) H 06/10/18 18:13 Eos % (Auto) 1.2 % (0.9-2.9) 06/10/18 18:13 Baso % (Auto) 0.6 % (0.2-1.0) 06/10/18 18:13 Neut # (Auto) 4.2 x10^3/uL (2.2-4.8) 06/10/18 18:13 Lymph # (Auto) 2.0 X10^3/uL (1.3-2.9) 06/10/18 18:13 [place] # (Auto) 1.1 x10^3/uL (0.3-0.8) H 06/10/18 18:13 Eos # (Auto) 0.1 x10^3/uL (0.0-0.2) 06/10/18 18:13 Baso # (Auto) 0.0 X10^3/uL (0.0-0.1) 06/10/18 18:13 Absolute Nucleated RBC 0.0 /100WBC 06/10/18 18:13 Sodium 141 mmol/L (136-145) 06/10/18 18:13 Corrected Sodium TNP 06/10/18 18:13 Potassium 4.0 mmol/L (3.5-5.1) 06/10/18 18:13 Chloride 104 mmol/L (98-107) 06/10/18 18:13 Carbon Dioxide 23.8 mmol/L (21-32) 06/10/18 18:13 BUN 18 mg/dL (7-18) 06/10/18 18:13 Creatinine 1.14 mg/dL (0.55-1.02) H 06/10/18 18:13 Est GFR (MDRD) Af Amer > 60 (>60) 06/10/18 18:13 Est GFR (MDRD) Non-Af 51 (>60) L 06/10/18 18:13 Glucose 97 mg/dL (65-99) 06/10/18 18:13 Calcium 9.9 mg/dL (8.5-10.1) 06/10/18 18:13 Corrected Calcium TNP 06/10/18 18:13 Total Bilirubin 0.20 mg/dL (0.2-1.0) 06/10/18 18:13 AST 19 Units/L (15-37) 06/10/18 18:13 ALT 26 Units/L (12-78) 06/10/18 18:13 Alkaline Phosphatase 133 Units/L (46-116) H 06/10/18 18:13 Creatine Kinase 154 Units/L (26-192) 06/10/18 23:32 CK-MB (CK-2) < 1.0 ng/mL (0-4.0) 06/10/18 23:32 CK/CKMB % Calc 0.7 % (<4) 06/10/18 23:32 Troponin I < 0.02 ng/mL (0-1.5) 06/10/18 23:32 Total Protein 8.2 g/dL (6.4-8.2) 06/10/18 18:13 Albumin 3.8 g/dL (3.4-5.0) 06/10/18 18:13 Globulin 4.4 g/dL (2.5-4.5) 06/10/18 18:13 Albumin/Globulin Ratio 0.9 Ratio (1.1-2.1) L 06/10/18 18:13 Amylase 76 Units/L (25-115) 06/10/18 18:13 Lipase 200 Units/L (73-393) 06/10/18 18:13 XRAY XRAY Interpreted by: Radiologist XRAY Findings: REPORT NOTED AND DISCUSS WITH PATIENT. EKG Rate: 76 [place]: LAD Rhythm: NSR ST: Old, Ant and Infarct
[2018-06-10 18:22] LABS: BASOPHILS % (AUTO) 0.6 % (0.2-1.0); EOSINOPHILS # (AUTO) 0.1 x10^3/uL (0.0-0.2); EOSINOPHILS % (AUTO) 1.2 % (0.9-2.9); HEMATOCRIT 39.3 % (36.0-47.0); HEMOGLOBIN 12.8 g/dL (12.0-16.0); MEAN CORPUSCULAR HEMOGLOBIN 30.1 pg (27.0-34.0); MEAN CORPUSCULAR HGB CONC 32.7 g/dL (33.0-35.0); MEAN CORPUSCULAR VOLUME 92.3 fL (80.0-100.0); MEAN PLATELET VOLUME 9.4 fL (7.4-11.0); MONOCYTES # (AUTO) 1.1 x10^3/uL (0.3-0.8); MONOCYTES % (AUTO) 15.1 % (0.0-13.0); NEUTROPHILS # (AUTO) 4.2 x10^3/uL (2.2-4.8); NEUTROPHILS % (AUTO) 56.1 % (42.0-75.0); PLATELET COUNT 139 X10^3/uL (150.0-450.0); RED BLOOD COUNT 4.26 X10^6/uL (3.5-5.4); RED CELL DISTRIBUTION WIDTH 14.5 % (11.6-16.5); WHITE BLOOD COUNT 7.4 X10^3/uL (3.6-10.0)
[2018-06-10 18:35] LABS: ALANINE AMINOTRANSFERASE 26 Units/L (12-78); ALBUMIN 3.8 g/dL (3.4-5.0); ALKALINE PHOSPHATASE 133 Units/L (46-116); AMYLASE 76 Units/L (25-115); ASPARTATE AMINO TRANSFERASE 19 Units/L (15-37); BLOOD UREA NITROGEN 18 mg/dL (7-18); CARBON DIOXIDE 23.8 mmol/L (21-32); CHLORIDE 104 mmol/L (98-107); LIPASE 200 Units/L (73-393); SODIUM 141 mmol/L (136-145); TOTAL PROTEIN 8.2 g/dL (6.4-8.2)
[2018-06-10 18:40] LABS: CALCIUM 9.9 mg/dL (8.5-10.1); CREATININE 1.14 mg/dL (0.55-1.02); eGFR NON BLACK RACES 51 (>60)
[2018-06-10 18:50] LABS: CKMB % 0.5 % (<4); CREATINE KINASE 189 Units/L (26-192); CREATINE KINASE MB < 1.0 ng/mL (0-4.0); TROPONIN I < 0.02 ng/mL (0-1.5)
[2018-06-10] MEDS ORDERED: ROXANOL ORAL SOLN 20MG UDC PO PRN (20:40)
[2018-06-10] MEDS ORDERED: BUTALBITAL ACETAMINOPHEN CAFF PO PRN (20:40)
[2018-06-10] MEDS ORDERED: LIPITOR TAB 40 MG PO SCH (21:00)
[2018-06-10] MEDS ORDERED: TOPIRAMATE 100 MG PO SCH (21:00)
[2018-06-10] MEDS ORDERED: ZANTAC PO SCH (21:00)
[2018-06-10] MEDS ORDERED: FIORICET TAB PO PRN (21:02)
[2018-06-10] MEDS: NS 1000 ML 1,000 ML IV SCH (21:30)
[2018-06-10] MEDS ORDERED: TRILEPTAL PO ONE (21:32)
[2018-06-10] MEDS: TRILEPTAL PO SCH (21:37)
[2018-06-10] MEDS: TOPAMAX TAB 100 MG PO SCH (21:37)
[2018-06-10] MEDS: NEURONTIN CAP 300 MG PO SCH (21:38)
[2018-06-10] MEDS: ZANTAC PO SCH (21:38)
[2018-06-10] MEDS: LOPRESSOR TAB 25 MG PO SCH (21:38)
[2018-06-10 21:57] VITALS: BMI 46.4
[2018-06-10] MEDS: ROXANOL ORAL SOLN 20MG UDC PO PRN (23:24)
[2018-06-11 00:19] LABS: CKMB % 0.7 % (<4); CREATINE KINASE 154 Units/L (26-192); CREATINE KINASE MB < 1.0 ng/mL (0-4.0); TROPONIN I < 0.02 ng/mL (0-1.5)
[2018-06-11] MEDS: NEURONTIN CAP 300 MG PO SCH ×2 (05:53→14:01)
[2018-06-11 05:54] LABS: BASOPHILS % (AUTO) 0.5 % (0.2-1.0); EOSINOPHILS # (AUTO) 0.1 x10^3/uL (0.0-0.2); EOSINOPHILS % (AUTO) 1.7 % (0.9-2.9); HEMATOCRIT 35.4 % (36.0-47.0); HEMOGLOBIN 11.3 g/dL (12.0-16.0); LYMPHOCYTES # (AUTO) 2.3 X10^3/uL (1.3-2.9); LYMPHOCYTES % (AUTO) 34.4 % (21.0-51.0); MEAN CORPUSCULAR HEMOGLOBIN 29.8 pg (27.0-34.0); MEAN CORPUSCULAR HGB CONC 31.9 g/dL (33.0-35.0); MEAN CORPUSCULAR VOLUME 93.5 fL (80.0-100.0); MEAN PLATELET VOLUME 10.1 fL (7.4-11.0); MONOCYTES # (AUTO) 1.1 x10^3/uL (0.3-0.8); NEUTROPHILS % (AUTO) 46.4 % (42.0-75.0); PLATELET COUNT 133 X10^3/uL (150.0-450.0); RED BLOOD COUNT 3.78 X10^6/uL (3.5-5.4); WHITE BLOOD COUNT 6.5 X10^3/uL (3.6-10.0)
[2018-06-11] MEDS: ROXANOL ORAL SOLN 20MG UDC PO PRN (06:04)
[2018-06-11 06:11] LABS: ALANINE AMINOTRANSFERASE 24 Units/L (12-78); ALKALINE PHOSPHATASE 118 Units/L (46-116); ASPARTATE AMINO TRANSFERASE 12 Units/L (15-37); BLOOD UREA NITROGEN 24 mg/dL (7-18); CALCIUM 8.8 mg/dL (8.5-10.1); CARBON DIOXIDE 24.6 mmol/L (21-32); CHLORIDE 107 mmol/L (98-107); COR CA(FOR HYPOALB) 9.6 mg/dL (8.5-10.1); COR NA(FOR HYPERGLY) 142 mmol/L (136-145); CREATININE 0.96 mg/dL (0.55-1.02); SODIUM 142 mmol/L (136-145); TOTAL PROTEIN 6.8 g/dL (6.4-8.2); eGFR NON BLACK RACES > 60 (>60)
[2018-06-11 06:19] LABS: CKMB % 0.7 % (<4); CREATINE KINASE 144 Units/L (26-192); CREATINE KINASE MB < 1.0 ng/mL (0-4.0); TROPONIN I < 0.02 ng/mL (0-1.5)
[2018-06-11] MEDS ORDERED: SYNTHROID 50 mcg TAB PO SCH (07:00)
[2018-06-11] MEDS ORDERED: TRILEPTAL PO ONE (08:39)
[2018-06-11] MEDS ORDERED: CLARITIN PO SCH (09:00)
[2018-06-11] MEDS ORDERED: PLAVIX PO SCH (09:00)
[2018-06-11] MEDS ORDERED: PATIENT'S HOME MEDICATION (Biotin [Biotin] 1 MG) PO SCH (09:00)
[2018-06-11] MEDS ORDERED: NORVASC TAB 10 MG PO SCH (09:00)
[2018-06-11] MEDS ORDERED: CHECK PATCH XX SCH (09:00)
[2018-06-11] MEDS ORDERED: ALDACTONE TAB 25 MG PO SCH (09:00)
[2018-06-11] MEDS ORDERED: ASPIRIN PO SCH (09:00)
[2018-06-11] MEDS ORDERED: LEVOTHYROXINE 50 MCG PO SCH (09:00)
[2018-06-11] MEDS: TOPAMAX TAB 100 MG PO SCH (09:08)
[2018-06-11] MEDS: TRILEPTAL PO SCH ×2 (09:08→09:10)
[2018-06-11] MEDS: LOPRESSOR TAB 25 MG PO SCH (09:10)
[2018-06-11] MEDS: ZANTAC PO SCH (09:10)
[2018-06-11] MEDS: NS 1000 ML 1,000 ML IV SCH (09:15)
[2018-06-11 12:28] VITALS: BP 136/65
--- NOTE | 2018-06-11 12:48 | RAD ---
HISTORY: Chest pain. Prior history of diabetes, COPD, asthma, oral cancer. Study: Single-view chest Comparison: 12/11/2017. Findings: A right-sided Port-A-Cath is again seen with the catheter inserted via a right subclavian approach. The catheter tip is seen in the upper SVC. Trachea is midline. Heart size is upper normal with atherosclerotic calcification and uncoiling of the aortic arch. Stable increased interstitial markings are present bilaterally. No consolidation, CHF, pleural fluid or pneumothorax is seen. Osseous structures are intact. IMPRESSION: Stable increased interstitial markings bilaterally. No consolidation, CHF, pleural fluid or pneumothorax is seen. Reported By:
--- NOTE | 2018-06-17 21:25 | DR.CARTERS ---
Short Stay Summary - Admission Date Date of Admission: 06/10/18 - Discharge Date Discharge Date: 06/11/18 - Admission Diagnoses (1) Chest pain, rule out acute myocardial infarction Status: Acute - Hospital Course Hospital Course: IS A 63 YEAR OLD PATIENT OF OURS WHO PRESENTED TO THE EMERGENCY ROOM WITH COMPLAINTS OF CHEST PAIN THAT RADIATES DOWN THE RIGHT ARM FOR THE PAST TWO DAYS. SHE DENIED SHORTNESS OF BREATH OR FEVER. SHE IS A RESIDENT OF [facility]. ON ARRIVAL, VITALS WERE 98.2-76-20-97%-148/84. LABS WERE OBTAINED. ABNORMAL LAB VALUES INCLUDE THE FOLLOWING: PLT COUNT 139, ALK PHOS 133, CREATININE 1.14. CARDIAC ENZYMES WITHIN NORMAL LIMITS. EKG REVEALED: SINUS RHYTHM WITH HR 76. SHE WAS STARTED ON NORMAL SALINE AT 30ML/HR. SHE WAS ADMITTED FOR FURTHER EVALUATION AND TREATMENT OF CHEST PAIN, RULE OUT ACUTE SC. HOME MEDICATIONS WERE RESUMED. WE PLANNED TO OBTAIN SERIAL CARDIAC ENZYMES AND EKGS WELL FOLLOW UP WITH AM LABS AND CONTINUE TO MONITOR. ON THE MORNING FOLLOWING ADMISSION, PATIENT IS ALERT AND ORIENTED AND REPORTS FEELING WELL. SHE DENIES CHEST PAIN THIS MORNING. HER VITALS THIS MORNING ARE 98.0-71-18-97%-124/65. CARDIAC ENZYMES AND EKGS WITHIN NORMAL LIMITS. WE PLANNED FOR DISCHARGE. INSTRUCTIONS FOR MEDICATIONS AND FOLLOW UP WERE DISCUSSED WITH PATIENT AND FAMILY. THEY VERBALIZED UNDERSTANDING. SHE WAS INSTRUCTED TO CONTINUE HER PREVIOUSLY PRESCRIBED MEDICATIONS. WE WILL FOLLOW UP WITH HER AT THE ASSIST[facility]. PATIENT WAS DISCHARGED BACK TO THE [facility] IN STABLE CONDITION. - Discharge Medications Discharge Medications: Home Medication List aspirin 325 mg PO DAILY 06/10/18 [History] biotin 1 mg PO DAILY 06/10/18 [History] [id number] [Fioricet] 1 cap PO Q8H PRN 06/10/18 [History] diclofenac sodium [Voltaren] 1 applic TOPICAL BID 06/10/18 [History] gabapentin 300 mg PO TID 06/10/18 [History] levothyroxine 50 mcg PO DAILY 06/10/18 [History] lidocaine HCl 1 applic TOPICAL Q12H PRN 06/10/18 [History] loratadine [Claritin] 10 mg PO DAILY 06/10/18 [History] metoprolol tartrate 12.5 mg PO BID 06/10/18 [History] oxcarbazepine [Trileptal] 600 mg PO BID 06/10/18 [History] ranitidine HCl 1 tab PO BID 06/10/18 [History] Prescriptions: - Discharge Plan Disposition: 03 XFER SNF Condition: Stable - Follow up/Referrals Follow up/Referrals: [facility] [Outside] Jonathan Quijano [Primary Care Provider] - - Instructions Additional Instructions: RESUME PREVIOUS DIET AND ACTIVITY
== END 2018-06-11 14:10 ==
LOC: ER 16:39 → MED/SURG 16:39
PROVIDERS: ADMIT Internal Medicine; ATTEND Internal Medicine
CPT/HCPCS: 36415; 71010; 71045; 80053; 82150; 82550; 82553; 83690; 84484; 85025; 93005; 94760; 96365; 99282; 99284; G0378; J7030

== ENCOUNTER 2020-12-10 14:32 | Inpatient (IN) ==
[2020-12-10 14:52] VITALS: BMI 34.1
[2020-12-10] MEDS ORDERED: SOLU-Medrol 125 MG VIAL IVP ONE (15:09)
[2020-12-10] MEDS ORDERED: PROTONIX INJ 40 MG VIAL IVP ONE (15:09)
--- NOTE | 2020-12-10 15:14 | DR.EXTPAIN ---
HPI Time seen Time Seen by Provider: 12/10/20 14:36 HPI Comment HPI Comment: Patient presents with lip and throat swelling. She denies any new allergen exposure, but records note that she takes JOSELITO inhibitor. [facility] reports that patient has h/o throat cancer and has seen Oncology in the past. Her usual Oncologist is no longer practicing and per [facility], patient has declined to see another Oncology provider. PMH PMH Past Medical History: Anemia, Anxiety, Arthritis, Depression, Dyslipidemia, GERD, Hypertension, Kidney Stones and Seizures Past Surgical History: Yes Surgical History: Hysterectomy and Other Family History Family Medical History: Diabetes Mellitus, Heart Failure and Hypertension Social History Do you use any recreational Drugs:: No ROS Review of Systems Constitutional: See HPI ENTM: See HPI Respiratoy: No Symptoms Reported All Other Systems: Reviewed and Negative PE Vital Signs Vitals: Temperature 99.4 F Pulse Rate 87 Respiratory Rate 20 Blood Pressure [Right Calf] 163/66 Blood Pressure [Right Arm] 108/52 Blood Pressure 133/70 O2 Sat by Pulse Oximetry 98 General Limitations: No Limitations General Appearance: Alert and In No Apparent Distress Head Head Exam: Other (severely swollen bottom lip) Eyes Eye exam: Normal Appearance ENT ENT Exam: Other (see Head exam) Neck Neck Exam: Normal Inspection and Other (tenderness and swelling under her chin) Chest Chest Inspection: Normal Inspection and Symmetric Chest Wall Rise Respiratory Respiratory Exam: Normal Lung Sounds Bilat Respiratory Exam: Bilateral: Clear to Auscultation Cardiovascular Cardiovascular Exam: Regular Rate, Normal Rhythm and Normal Heart Sounds Abdominal Exam Abdominal Exam: Normal Inspection, Normal Bowel Sounds and Soft Neurological Neurological Exam: Alert and Oriented X3 Psychiatric Psychiatric Exam: Normal Affect and Normal Mood Skin Skin Exam: Warm, Dry and Intact COURSE Reevaluation 1st: Unchanged 2nd: Unchanged Consultation Consultation Comments: Spoke with Dr. Bro who accepts this patient for admission. ROR Labs Reviewed Laboratory Results Reviewed?: Yes Result Diagrams: 12/10/20 15:39 12/10/20 15:39 Laboratory: WBC 6.1 X10^3/uL (3.6-10.0) 12/10/20 15:39 RBC 3.91 X10^6/uL (3.5-5.4) 12/10/20 15:39 Hgb 12.2 g/dL (12.0-16.0) 12/10/20 15:39 Hct 36.6 % (36.0-47.0) 12/10/20 15:39 MCV 93.8 fL (80.0-100.0) 12/10/20 15:39 MCH 31.3 pg (27.0-34.0) 12/10/20 15:39 MCHC 33.4 g/dL (33.0-35.0) 12/10/20 15:39 RDW 13.6 % (11.6-16.5) 12/10/20 15:39 Plt Count 110 X10^3/uL (150.0-450.0) L 12/10/20 15:39 MPV 9.7 fL (7.4-11.0) 12/10/20 15:39 Neut % (Auto) 70.6 % (42.0-75.0) 12/10/20 15:39 Lymph % (Auto) 15.7 % (21.0-51.0) L 12/10/20 15:39 [place] % (Auto) 13.2 % (0.0-13.0) H 12/10/20 15:39 Eos % (Auto) 0.2 % (0.9-2.9) L 12/10/20 15:39 Baso % (Auto) 0.3 % (0.2-1.0) 12/10/20 15:39 Neut # (Auto) 4.3 x10^3/uL (2.2-4.8) 12/10/20 15:39 Lymph # (Auto) 1.0 X10^3/uL (1.3-2.9) L 12/10/20 15:39 [place] # (Auto) 0.8 x10^3/uL (0.3-0.8) 12/10/20 15:39 Eos # (Auto) 0.0 x10^3/uL (0.0-0.2) 12/10/20 15:39 Baso # (Auto) 0.0 X10^3/uL (0.0-0.1) 12/10/20 15:39 Absolute Nucleated RBC 0.1 /100WBC 12/10/20 15:39 Sodium 141 mmol/L (136-145) 12/10/20 15:39 Corrected Sodium TNP 12/10/20 15:39 Potassium 4.0 mmol/L (3.5-5.1) 12/10/20 15:39 Chloride 105 mmol/L (98-107) 12/10/20 15:39 Carbon Dioxide 26.0 mmol/L (21-32) 12/10/20 15:39 BUN 15 mg/dL (7-18) 12/10/20 15:39 Creatinine 0.79 mg/dL (0.55-1.02) 12/10/20 15:39 Est GFR (MDRD) Af Amer > 60 (>60) 12/10/20 15:39 Est GFR (MDRD) Non-Af > 60 (>60) 12/10/20 15:39 Glucose 99 mg/dL (65-99) 12/10/20 15:39 Calcium 9.4 mg/dL (8.5-10.1) 12/10/20 15:39 Corrected Calcium TNP 12/10/20 15:39 Total Bilirubin 0.40 mg/dL (0.2-1.0) 12/10/20 15:39 AST 19 Units/L (15-37) 12/10/20 15:39 ALT 25 Units/L (12-78) 12/10/20 15:39 Alkaline Phosphatase 71 Units/L (46-116) 12/10/20 15:39 Total Protein 7.8 g/dL (6.4-8.2) 12/10/20 15:39 Albumin 3.7 g/dL (3.4-5.0) 12/10/20 15:39 Globulin 4.1 g/dL (2.5-4.5) 12/10/20 15:39 Albumin/Globulin Ratio 0.9 Ratio (1.1-2.1) L 12/10/20 15:39 XRAY X-ray Results: EXAM: SOFT TISSUE NECK CT WITH INTRAVENOUS CONTRAST HISTORY: Neck swelling. TECHNIQUE: Spiral axial CT images are obtained through the neck from the skull base to the thoracic inlet with the administration of intravenous contrast. Additional sagittal and coronal reformatted images are reconstructed. DOSIMETRY: Total DLP 534.4 mGycm; CTDI 112.7 mGy COMPARISON: None available. FINDINGS: ADENOIDS AND TONSILS: There is no gross enlargement of the adenoids to suggest adenoiditis/pharyngitis. The palatine and lingual tonsils are within normal limits. No tonsillar/peritonsillar fluid collection reminiscent of abscess is seen. No parapharyngeal or retropharyngeal fluid collection or abscess formation is noted. AERODIGESTIVE TRACT: The upper aerodigestive tract, including the epiglottis, vallecula, piriform sinuses, vocal cords, with vocal folds, and proximal trachea, are within normal limits. No evidence for Edgar's angina. GLANDS: The parotid glands, salivary glands, and thyroid gland are within normal limits. LYMPH NODES: There is no evidence for superficial or deep cervical chain lymphadenopathy. No submandibular, submental, or supraclavicular lymphadenopathy is seen. CAROTID SHEATH: There is aortic arch atherosclerosis marked by calcified pleural plaques. 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 Severe atherosclerotic calcified pleural plaques are seen at the carotid bulbs with potential for hemodynamically significant stenoses of the ICA origins bilaterally. Note tortuous ICAs coursing within the retropharyngeal soft tissues. Recommend follow-up dedicated vascular imaging for further assessment. MUSCULOSKELETAL: There is complete loss of dentition. Cortical bone erosions are seen within the bilateral tooth fossae of the bodies of the mandible which could represent osteomyelitis in the appropriate clinical setting. The cervical muscles, including the sternocleidomastoid muscles and paraspinal muscles, are within normal limits. There is no abnormal soft tissue mass is seen. The visualized bony structures are within normal limits. MISCELLANEOUS: There is nonspecific bilateral diffuse subcutaneous soft tissue edema/swelling. There is mild chronic bilateral maxillary sinusitis, right greater than left, marked by mucoperiosteal thickening. No suspicious foreign body is seen. A right anterior chest wall chest port is noted in situ. Prominent subcutaneous varicose veins are seen in the right shoulder and anterior superior chest wall. IMPRESSION: 1. Complete loss of dentition. 2. Cortical bone erosions are seen within the bilateral tooth fossae of the bodies of the mandible which could represent osteomyelitis in the appropriate clinical setting. Clinical correlation is advised. 3. Nonspecific bilateral diffuse subcutaneous soft tissue edema/swelling. 4. Mild chronic bilateral maxillary sinusitis, right greater than left, marked by mucoperiosteal thickening. 5. Aortic arch atherosclerosis marked by calcified pleural plaques. 6. 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 7. Severe atherosclerotic calcified pleural plaques are seen at the carotid bulbs with potential for hemodynamically significant stenoses of the ICA origins bilaterally. 8. Note tortuous ICAs coursing within the retropharyngeal soft tissues. Recommend follow-up dedicated vascular imaging for further assessment. 9. Prominent subcutaneous varicose veins are seen in the right shoulder and anterior superior chest wall. Electronically signed by: Bassem Strong (Dec 10, 2020 17:23:28) Opioid Opioid Risk Tool Total: 0 Total Score Risk Category: Low Risk Copyright: Derrek BRICENO predicting aberrant behaviors Diagnosis Discharge Problem: Angioedema Qualifiers: Encounter type: initial encounter Qualified Code(s): T78.3XXA - Angioneurotic edema, initial encounter
[2020-12-10] MEDS ORDERED: PROTONIX INJ 40 MG VIAL ONE (15:39)
[2020-12-10] MEDS ORDERED: SOLU-Medrol 125 MG VIAL ONE (15:39)
[2020-12-10 15:47] LABS: BASOPHILS % (AUTO) 0.3 % (0.2-1.0); EOSINOPHILS % (AUTO) 0.2 % (0.9-2.9); HEMATOCRIT 36.6 % (36.0-47.0); HEMOGLOBIN 12.2 g/dL (12.0-16.0); LYMPHOCYTES % (AUTO) 15.7 % (21.0-51.0); MEAN CORPUSCULAR HEMOGLOBIN 31.3 pg (27.0-34.0); MEAN CORPUSCULAR HGB CONC 33.4 g/dL (33.0-35.0); MEAN CORPUSCULAR VOLUME 93.8 fL (80.0-100.0); MEAN PLATELET VOLUME 9.7 fL (7.4-11.0); MONOCYTES # (AUTO) 0.8 x10^3/uL (0.3-0.8); MONOCYTES % (AUTO) 13.2 % (0.0-13.0); NEUTROPHILS # (AUTO) 4.3 x10^3/uL (2.2-4.8); NEUTROPHILS % (AUTO) 70.6 % (42.0-75.0); PLATELET COUNT 110 X10^3/uL (150.0-450.0); RED BLOOD COUNT 3.91 X10^6/uL (3.5-5.4); RED CELL DISTRIBUTION WIDTH 13.6 % (11.6-16.5); WHITE BLOOD COUNT 6.1 X10^3/uL (3.6-10.0)
[2020-12-10 16:02] LABS: ALANINE AMINOTRANSFERASE 25 Units/L (12-78); ALBUMIN 3.7 g/dL (3.4-5.0); ALKALINE PHOSPHATASE 71 Units/L (46-116); ASPARTATE AMINO TRANSFERASE 19 Units/L (15-37); BLOOD UREA NITROGEN 15 mg/dL (7-18); CALCIUM 9.4 mg/dL (8.5-10.1); CHLORIDE 105 mmol/L (98-107); CREATININE 0.79 mg/dL (0.55-1.02); SODIUM 141 mmol/L (136-145); TOTAL PROTEIN 7.8 g/dL (6.4-8.2); eGFR NON BLACK RACES > 60 (>60)
--- NOTE | 2020-12-10 17:24 | CT ---
EXAM: SOFT TISSUE NECK CT WITH INTRAVENOUS CONTRASTHISTORY: Neck swelling.TECHNIQUE: Spiral axial CT images are obtained through the neck from the skull base to the thoracic inlet with the administration of intravenous contrast. Additional sagittal and coronal reformatted images are reconstructed.DOSIMETRY: Total DLP 534.4 mGycm; CTDI 112.7 mGyCOMPARISON: None available.FINDINGS:ADENOIDS AND TONSILS: There is no gross enlargement of the adenoids to suggest adenoiditis/pharyngitis. The palatine and lingual tonsils are within normal limits. No tonsillar/peritonsillar fluid collection reminiscent of abscess is seen. No parapharyngeal or retropharyngeal fluid collection or abscess formation is noted.AERODIGESTIVE TRACT: The upper aerodigestive tract, including the epiglottis, vallecula, piriform sinuses, vocal cords, with vocal folds, and proximal trachea, are within normal limits. No evidence for Edgar's angina.GLANDS: The parotid glands, salivary glands, and thyroid gland are within normal limits.LYMPH NODES: There is no evidence for superficial or deep cervical chain lymphadenopathy. No submandibular, submental, or supraclavicular lymphadenopathy is seen.CAROTID SHEATH: There is aortic arch atherosclerosis marked by calcified pleural plaques. 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 Severe atherosclerotic calcified pleural plaques are seen at the carotid bulbs with potential for hemodynamically significant stenoses of the ICA origins bilaterally. Note tortuous ICAs coursing within the retropharyngeal soft tissues. Recommend follow-up dedicated vascular imaging for further assessment.MUSCULOSKELETAL: There is complete loss of dentition. Cortical bone erosions are seen within the bilateral tooth fossae of the bodies of the mandible which could represent osteomyelitis in the appropriate clinical setting. The cervical muscles, including the sternocleidomastoid muscles and paraspinal muscles, are within normal limits. There is no abnormal soft tissue mass is seen. The visualized bony structures are within normal limits.MISCELLANEOUS: There is nonspecific bilateral diffuse subcutaneous soft tissue edema/swelling. There is mild chronic bilateral maxillary sinusitis, right greater than left, marked by mucoperiosteal thickening. No suspicious foreign body is seen. A right anterior chest wall chest port is noted in situ. Prominent subcutaneous varicose veins are seen in the right shoulder and anterior superior chest wall.IMPRESSION:1. Complete loss of dentition.2. Cortical bone erosions are seen within the bilateral tooth fossae of the bodies of the mandible which could represent osteomyelitis in the appropriate clinical setting. Clinical correlation is advised.3. Nonspecific bilateral diffuse subcutaneous soft tissue edema/swelling.4. Mild chronic bilateral maxillary sinusitis, right greater than left, marked by mucoperiosteal thickening.5. Aortic arch atherosclerosis marked by calcified pleural plaques.6. Severely attenuated blood flow within the right carotid artery in keeping with probable hemodynamically significant right brachiocephalic artery stenosis at its origin.7. Severe atherosclerotic calcified pleural plaques are seen at the carotid bulbs with potential for hemodynamically significant stenoses of the ICA origins bilaterally.8. Note tortuous ICAs coursing within the retropharyngeal soft tissues. Recommend follow-up dedicated vascular imaging for further assessment.9. Prominent subcutaneous varicose veins are seen in the right shoulder and anterior superior chest wall.Electronically signed by: Bassem Strong (Dec 10, 2020 17:23:28)
[2020-12-10] MEDS ORDERED: HumuLIN R SUBCUT PRN (18:51)
[2020-12-10] MEDS ORDERED: BUTALBITAL ASPIRIN CAFFEINE PO PRN (19:02)
[2020-12-10] MEDS ORDERED: NS 1000 ML 1,000 ML ONE (19:49)
[2020-12-10] MEDS: NS 1000 ML 1,000 ML IV SCH (19:52)
[2020-12-10] MEDS ORDERED: NEURONTIN CAP 100 MG PO SCH (21:00)
[2020-12-10] MEDS ORDERED: LIPITOR TAB 40 MG PO SCH (21:00)
[2020-12-10] MEDS ORDERED: COLACE CAP 100 MG PO SCH (21:00)
[2020-12-10] MEDS ORDERED: REQUIP PO SCH (21:00)
[2020-12-10] MEDS ORDERED: TRILEPTAL PO SCH (21:00)
[2020-12-10] MEDS ORDERED: TOPAMAX TAB 100 MG PO SCH (21:00)
[2020-12-10] MEDS ORDERED: LOPRESSOR TAB 25 MG PO SCH (21:00)
[2020-12-10] MEDS ORDERED: ZANAFLEX PO SCH (21:00)
[2020-12-10] MEDS ORDERED: TRILEPTAL PO ONE (21:32)
[2020-12-10] MEDS: SNACK - Diabetic Appropriate PO SCH (21:44)
[2020-12-10] MEDS: SOLU-Medrol 125 MG VIAL IVP SCH (21:46)
[2020-12-11] MEDS ORDERED: ZANAFLEX PO PRN (00:46)
[2020-12-11] MEDS: SOLU-Medrol 125 MG VIAL IVP SCH ×2 (05:48→20:38)
[2020-12-11] MEDS: SYNTHROID 50 mcg TAB PO SCH (06:27)
[2020-12-11] MEDS ORDERED: TRILEPTAL PO ONE ×2 (08:47→20:32)
[2020-12-11] MEDS ORDERED: BIOTIN 1 MG PO SCH (09:00)
[2020-12-11] MEDS ORDERED: NORVASC TAB 10 MG PO SCH (09:00)
[2020-12-11] MEDS ORDERED: ASPIRIN PO SCH (09:00)
[2020-12-11] MEDS ORDERED: CELEBREX PO SCH (09:00)
[2020-12-11] MEDS ORDERED: IRON FOLIC ACID MV MIN CMB PO SCH (09:00)
[2020-12-11] MEDS ORDERED: PROTONIX TAB 40 MG PO SCH (09:00)
[2020-12-11] MEDS ORDERED: PLAVIX PO SCH (09:00)
[2020-12-11] MEDS ORDERED: IRON PO SCH (09:00)
[2020-12-11] MEDS ORDERED: SYNTHROID 50 mcg TAB PO SCH (09:00)
[2020-12-11] MEDS ORDERED: ZyrTEC TAB 10 MG PO SCH (09:00)
[2020-12-11] MEDS ORDERED: ALDACTONE TAB 25 MG PO SCH (09:00)
[2020-12-11] MEDS: ASPIRIN PO SCH (10:03)
[2020-12-11] MEDS: TRILEPTAL PO SCH ×2 (10:07→20:37)
[2020-12-11] MEDS: ALDACTONE TAB 25 MG PO SCH (10:07)
[2020-12-11] MEDS: ZyrTEC TAB 10 MG PO SCH (10:08)
[2020-12-11] MEDS: LOPRESSOR TAB 25 MG PO SCH ×2 (10:08→20:38)
[2020-12-11] MEDS: TOPAMAX TAB 100 MG PO SCH ×2 (10:08→20:39)
[2020-12-11] MEDS: COLACE CAP 100 MG PO SCH ×2 (10:09→20:37)
[2020-12-11] MEDS: CELEBREX PO SCH (10:09)
[2020-12-11] MEDS: PLAVIX PO SCH (10:10)
[2020-12-11] MEDS: PROTONIX TAB 40 MG PO SCH (10:10)
[2020-12-11] MEDS: REQUIP PO SCH ×2 (10:10→20:38)
[2020-12-11] MEDS: NEURONTIN CAP 100 MG PO SCH ×2 (10:11→20:38)
[2020-12-11] MEDS: NORVASC TAB 10 MG PO SCH (10:11)
[2020-12-11] MEDS: NS 1000 ML 1,000 ML IV SCH (10:49)
--- NOTE | 2020-12-11 12:50 | DR.H&P ---
H&P History & Physical for Day of: H&P Date: 12/11/20 Chief Complaint Chief Complaint: neck and lip swelling Allergies Allergies Allergy/AdvReac Type Severity Reaction Status Date / Time No Known Drug Allergies Allergy Verified 05/21/17 18:27 History of Present Illness History of Present Illness: Ms Weinstein is a 65yo female resident of [place] with a PMH of Oral cancer, chronic pain syndrome, HTN , HLD, anemia, arthritis and hypothyroidism presented with increased facial swelling. Patient reports increased lip and neck swelling. Patient has had several admissions for similar Sx. She denies any allergies. Denies recent changes to medications. Patient appears to be in no distress at this time. Labs: Hgb 12.2 [address] soft tissue and neck: Complete loss of dentition. Cortical bone erosions are seen within the bilateral tooth fossae of the bodies of the mandible which could represent osteomyelitis in the appropriate clinical setting. Clinical correlation is advised. Nonspecific bilateral diffuse subcutaneous soft tissue edema/swelling. Mild chronic bilateral maxillary sinusitis, right greater than left, marked by mucoperiosteal thickening. 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 Severe atherosclerotic calcified pleural plaques are seen at the carotid bulbs with potential for hemodynamically significant stenoses of the ICA origins bilaterally. Note tortuous ICAs coursing within the retropharyngeal soft tissues. Recommend follow-up dedicated vascular imaging for further assessment. Plan: patient was started on IV solumedrol. She still has the lip swelling, no respiratory distress noted. Patient denies ever seeing vascular. Will consult vascular for abnormal findings on CT. Continue solumedrol. Monitor lip swelling, monitor respiratory status closely. Continue home medications. Patient is currently not on JOSELITO inhibitor but has been in the past. Monitor Am labs and imaging. Past Medical History Past Medical History: Anemia, Anxiety, Arthritis, Depression, Dyslipidemia, GERD, Hypertension, Kidney Stones and Seizures Additional Medical History: Oral Cancer, Bronchitis, Ear Infections Past Surgical History Surgical History: Hysterectomy and Other Additional Surgical History: Peg Tube Placement Family History Family Medical History: Diabetes Mellitus, Heart Failure and Hypertension Social History Does patient currently use any type of tobacco product: No Have you used tobacco products in the last 12 months: No Type of Tobacco Use: None Alcohol Use: None Drug Use: None Prescription drug monitoring program results: PDMP reviewed and no concerns identified Medications Home Medications: No Known Drug Allergies Allergy (Verified 05/21/17 18:27) CONTINUE taking the following medications aspirin 325 mg PO DAILY 12/10/20 [History] celecoxib 200 mg PO DAILY 12/10/20 [History] fentanyl 50 mcg TRANSDERMAL Q3D 12/10/20 [History] iron-folic acid-mv, min cmb#15 [Ferrocite Plus] 1 cap PO QAM 12/10/20 [History] oxcarbazepine 600 mg PO BID 12/10/20 [History] Labs Result Diagrams: 12/10/20 15:39 12/10/20 15:39 Labs: Laboratory WBC 6.1 X10^3/uL (3.6-10.0) 12/10/20 15:39 RBC 3.91 X10^6/uL (3.5-5.4) 12/10/20 15:39 Hgb 12.2 g/dL (12.0-16.0) 12/10/20 15:39 Hct 36.6 % (36.0-47.0) 12/10/20 15:39 MCV 93.8 fL (80.0-100.0) 12/10/20 15:39 MCH 31.3 pg (27.0-34.0) 12/10/20 15:39 MCHC 33.4 g/dL (33.0-35.0) 12/10/20 15:39 RDW 13.6 % (11.6-16.5) 12/10/20 15:39 Plt Count 110 X10^3/uL (150.0-450.0) L 12/10/20 15:39 MPV 9.7 fL (7.4-11.0) 12/10/20 15:39 Neut % (Auto) 70.6 % (42.0-75.0) 12/10/20 15:39 Lymph % (Auto) 15.7 % (21.0-51.0) L 12/10/20 15:39 Warrick % (Auto) 13.2 % (0.0-13.0) H 12/10/20 15:39 Eos % (Auto) 0.2 % (0.9-2.9) L 12/10/20 15:39 Baso % (Auto) 0.3 % (0.2-1.0) 12/10/20 15:39 Neut # (Auto) 4.3 x10^3/uL (2.2-4.8) 12/10/20 15:39 Lymph # (Auto) 1.0 X10^3/uL (1.3-2.9) L 12/10/20 15:39 Warrick # (Auto) 0.8 x10^3/uL (0.3-0.8) 12/10/20 15:39 Eos # (Auto) 0.0 x10^3/uL (0.0-0.2) 12/10/20 15:39 Baso # (Auto) 0.0 X10^3/uL (0.0-0.1) 12/10/20 15:39 Absolute Nucleated RBC 0.1 /100WBC 12/10/20 15:39 Sodium 141 mmol/L (136-145) 12/10/20 15:39 Corrected Sodium TNP 12/10/20 15:39 Potassium 4.0 mmol/L (3.5-5.1) 12/10/20 15:39 Chloride 105 mmol/L (98-107) 12/10/20 15:39 Carbon Dioxide 26.0 mmol/L (21-32) 12/10/20 15:39 BUN 15 mg/dL (7-18) 12/10/20 15:39 Creatinine 0.79 mg/dL (0.55-1.02) 12/10/20 15:39 Est GFR (MDRD) Af Amer > 60 (>60) 12/10/20 15:39 Est GFR (MDRD) Non-Af > 60 (>60) 12/10/20 15:39 Glucose 99 mg/dL (65-99) 12/10/20 15:39 POC Glucose (mg/dL) 125 mg/dL (65-99) H 12/11/20 11:53 Calcium 9.4 mg/dL (8.5-10.1) 12/10/20 15:39 Corrected Calcium TNP 12/10/20 15:39 Total Bilirubin 0.40 mg/dL (0.2-1.0) 12/10/20 15:39 AST 19 Units/L (15-37) 12/10/20 15:39 ALT 25 Units/L (12-78) 12/10/20 15:39 Alkaline Phosphatase 71 Units/L (46-116) 12/10/20 15:39 Total Protein 7.8 g/dL (6.4-8.2) 12/10/20 15:39 Albumin 3.7 g/dL (3.4-5.0) 12/10/20 15:39 Globulin 4.1 g/dL (2.5-4.5) 12/10/20 15:39 Albumin/Globulin Ratio 0.9 Ratio (1.1-2.1) L 12/10/20 15:39 SARS-CoV-2 (PCR) Negative (NEGATIVE) 12/10/20 18:49 Influenza Type A (PCR) Negative (NEGATIVE) 12/10/20 18:49 Influenza Type B (PCR) Negative (NEGATIVE) 12/10/20 18:49 RSV (PCR) Negative (NEGATIVE) 12/10/20 18:49 Review of Systems Constitutional: No Symptoms Reported Eyes: No Symptoms Reported ENT: Mouth Swelling (lip edema noted ) Respiratory: No Symptoms Reported Cardiovascular: No Symptoms Reported Gastrointestinal: No Symptoms Reported Musculoskeletal: Back Pain Skin: No Symptoms Reported Neurological: No Symptoms Reported Physical Exam Vital Signs: Temperature 98.1 F Pulse Rate [Right Radial] 80 Pulse Rate 101 Respiratory Rate 15 Blood Pressure [Right Calf] 163/66 Blood Pressure [Right Arm] 123/60 Blood Pressure 133/70 O2 Sat by Pulse Oximetry 97 Oriented: Normal Eyes: Normal Ear: Normal Nose: Normal Throat: Other (lip swelling noted ) Respiratory: Diminished Throughout Cardiovascular: Normal and Other (port noted on right chest wall area ) Auscultation: Bowel Sounds: Normal Palpation: Normal Tenderness: Normal Skin: Decreased Turgur Musculoskeletal: Right, Shoulder, Arm and Back:Lumbar Psychiatric: Normal Mood Description: Calm Affect: Normal Speech Pattern: Clear and Appropriate Assessment/Plan (1) Chest wall pain: Status: Acute (2) Edema of face: Status: Acute (3) Angioedema: Qualifiers: Encounter type: initial encounter Qualified Code(s): T78.3XXA - Angioneurotic edema, initial encounter Status: Acute (4) Carotid stenosis: Qualifiers: Laterality: right Qualified Code(s): I65.21 - Occlusion and stenosis of right carotid artery Status: Acute (5) COPD (chronic obstructive pulmonary disease): Qualifiers: COPD type: unspecified COPD Qualified Code(s): J44.9 - Chronic obstructive pulmonary disease, unspecified Status: Chronic (6) History of anemia: Status: Chronic (7) Anxiety: Status: Chronic (8) Squamous cell carcinoma of tongue: Status: Chronic (9) Chronic pain syndrome: Status: Acute Review H&P Reviewed: Yes Patient was examined?: Yes
[2020-12-11 14:29] LABS: BASOPHILS % (AUTO) 0.1 % (0.2-1.0); EOSINOPHILS % (AUTO) 0.1 % (0.9-2.9); HEMATOCRIT 36.6 % (36.0-47.0); HEMOGLOBIN 12.2 g/dL (12.0-16.0); LYMPHOCYTES # (AUTO) 0.7 X10^3/uL (1.3-2.9); LYMPHOCYTES % (AUTO) 9.5 % (21.0-51.0); MEAN CORPUSCULAR HEMOGLOBIN 31.1 pg (27.0-34.0); MEAN CORPUSCULAR HGB CONC 33.3 g/dL (33.0-35.0); MEAN CORPUSCULAR VOLUME 93.5 fL (80.0-100.0); MONOCYTES # (AUTO) 0.7 x10^3/uL (0.3-0.8); MONOCYTES % (AUTO) 8.6 % (0.0-13.0); NEUTROPHILS # (AUTO) 6.4 x10^3/uL (2.2-4.8); NEUTROPHILS % (AUTO) 81.7 % (42.0-75.0); PLATELET COUNT 122 X10^3/uL (150.0-450.0); RED BLOOD COUNT 3.92 X10^6/uL (3.5-5.4); RED CELL DISTRIBUTION WIDTH 13.3 % (11.6-16.5); WHITE BLOOD COUNT 7.8 X10^3/uL (3.6-10.0)
[2020-12-11 14:32] LABS: BLOOD UREA NITROGEN 19 mg/dL (7-18); CALCIUM 9.2 mg/dL (8.5-10.1); CARBON DIOXIDE 21.5 mmol/L (21-32); CHLORIDE 107 mmol/L (98-107); COR NA(FOR HYPERGLY) 143 mmol/L (136-145); CREATININE 0.71 mg/dL (0.55-1.02); SODIUM 141 mmol/L (136-145); eGFR NON BLACK RACES > 60 (>60)
[2020-12-11] MEDS ORDERED: NS 100 ML IV 100 ML ONE (17:32)
--- NOTE | 2020-12-11 19:08 | CT ---
EXAM: CTA CAROTIDHISTORY: Abnormal soft tissue neck CT, with ICA stenosis.TECHNIQUE: Spiral axial CT images are obtained through the neck from the skull base to the thoracic inlet with the administration of intravenous contrast. Sagittal and coronal reformatted images were reconstructed. 2-D and 3-D MIP vascular images are reformatted. Evaluation for stenosis performed by employing NASCET criteria. 3D, vascular images are reformatted.COMPARISON: None available.FINDINGS:Note: Exam degraded by partially missed bolus with most of contrast opacification within jugular venous system at the time of the scan.There is atherosclerotic disease of the carotid arteries which demonstrate mild tortuosity and course within the retropharyngeal soft tissues.There is atherosclerotic disease of the carotid bifurcations with calcified mural plaques, left greater than right. Estimated 70% stenosis of the left ICA origin; potentially hemodynamically significant. Axial image 82?90. Estimated mild (40 to 50%) right ICA origin stenosis; presumed nonhemodynamically significant. Axial image 83?94.There is no hemodynamically significant ECA stenosis or occlusion seen. Both common carotid arteries are widely patent. Both vertebral arteries are patent with antegrade blood flow. Normal great vessel branch anatomy is seen at the aortic arch.Suggestion of an approximately 1.5 cm x 1.2 cm hypodense nodule in the left lobe of the thyroid and an approximately 8.9 mm x 8.6 mm hypodense nodule in the right lobe of the thyroid; nonspecific finding; DDx includes multinodular goiter. Axial image 48?64. Consider follow-up evaluation with ultrasound and/or nuclear medicine thyroid scan and thyroid uptake evaluation to rule out a hot nodule (e.g. hyperfunctioning adenoma) or cold nodule (which have a higher predilection for malignancy) as clinically warranted warranted.IMPRESSION:1. Atherosclerotic disease of the carotid arteries which demonstrate mild tortuosity and course within the retropharyngeal soft tissues.2. Atherosclerotic disease of the carotid bifurcations with calcified mural plaques, left greater than right.3. Estimated 70% stenosis of the left ICA origin; potentially hemodynamically significant. Axial image 82?90.4. Estimated mild (40 to 50%) right ICA origin stenosis; presumed nonhemodynamically significant. Axial image 83?94.5. No gross arterial dissection or aneurysmal dilatation noted.6. Patent vertebral arteries.7. Approximately 1.5 cm x 1.2 cm hypodense nodule in the left lobe of the thyroid and an approximately 8.9 mm x 8.6 mm hypodense nodule in the right lobe of the thyroid; nonspecific finding; DDx includes multinodular goiter. Axial image 48?64. Consider follow-up evaluation with ultrasound and/or nuclear medicine thyroid scan and thyroid uptake evaluation to rule out a hot nodule (e.g. hyperfunctioning adenoma) or cold nodule (which have a higher predilection for malignancy) as clinically warranted warranted.Electronically signed by: Bassem Strong (Dec 11, 2020 19:07:26)
--- NOTE | 2020-12-11 20:29 | CT ---
EXAM: CTA CHEST WITH INTRAVENOUS CONTRASTHISTORY: Right brachiocephalic stenosis. Stroke symptoms.TECHNIQUE: Spiral axial CT images are obtained through the chest with the administration of intravenous contrast. Coronal, sagittal and 3D MIP images are reformatted.DOSIMETRY: Total DLP 640.7 mGycm; CTDI 65.4 mGyCOMPARISON: None available.FINDINGS:CARDIOVASCULAR: There is severe coronary atherosclerosis. There is severe aortic atherosclerosis marked by calcified mural plaque. No aortic aneurysm or dissection is seen. There is severe atherosclerotic disease of the brachiocephalic trunk and left common carotid artery origins, with estimated mild (less than 50% brachiocephalic trunk luminal stenosis and estimated 50% left common carotid artery origin stenosis, of uncertain hemodynamic significance. Clinical correlation is advised. The proximal right common carotid artery and the subclavian arteries are widely patent. There is no evidence for pulmonary embolic disease. 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 No pleural effusion or pneumothorax is evident.CHEST WALL: There are no chest wall lesions seen. The visualized bony structures are within normal limits. No axillary lymphadenopathy is noted.UPPER ABDOMEN: Limited views through the upper abdomen demonstrate no gross acute abnormality.IMPRESSION:1. Severe coronary atherosclerosis.2. Severe aortic atherosclerosis marked by calcified mural plaque; no aortic aneurysm or dissection is seen.3. Severe atherosclerotic disease of the brachiocephalic trunk and left common carotid artery origins, with estimated mild (less than 50% brachiocephalic trunk luminal stenosis and estimated 50% left common carotid artery origin stenosis, of uncertain hemodynamic significance. Clinical correlation is advised.4. No evidence for pulmonary embolic disease.5. 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 No acute parenchymal infiltrate, pleural effusion, endobronchial obstructing lesion or pneumothorax seen.Electronically signed by: Bassem Strong (Dec 11, 2020 20:28:39)
[2020-12-11] MEDS: SNACK - Diabetic Appropriate PO SCH (20:36)
[2020-12-11] MEDS: LIPITOR TAB 40 MG PO SCH (20:38)
--- NOTE | 2020-12-11 23:59 | DR.CONSULT ---
CONSULT Consultation for Day of: Date: 12/11/20 Chief Complaint Chief Complaint: Swelling of lips and face . Allergies Allergies Allergy/AdvReac Type Severity Reaction Status Date / Time No Known Drug Allergies Allergy Verified 05/21/17 18:27 History of Present Illness History of Present Illness: 65-year-old female currently resident at local assisted facility who has history of angioedema and presented with swelling of the lips and face and treated with steroids. CT scan of the neck showed attenuation of flow of the right carotid artery consistent with brachiocephalic stenosis as well as significant stenosis of both internal carotid arteries on CT scan. However the CT scan was not a dedicated scan for this reason. Past history is significant for TIAs. Has PEG dur to treatment of oral cancer in the past. Past Medical History Past Medical History: Anemia, Anxiety, Arthritis, Depression, Dyslipidemia, GERD, Hypertension, Kidney Stones and Seizures Additional Medical History: Oral Cancer, Bronchitis, Ear Infections Past Surgical History Surgical History: Hysterectomy and Other Additional Surgical History: Peg Tube Placement Family History Family Medical History: Diabetes Mellitus, Heart Failure and Hypertension Social History Does patient currently use any type of tobacco product: No Have you used tobacco products in the last 12 months: No Type of Tobacco Use: None Alcohol Use: None Drug Use: None Medications Home Medications: No Known Drug Allergies Allergy (Verified 05/21/17 18:27) CONTINUE taking the following medications aspirin 325 mg PO DAILY 12/10/20 [History] celecoxib 200 mg PO DAILY 12/10/20 [History] fentanyl 50 mcg TRANSDERMAL Q3D 12/10/20 [History] iron-folic acid-mv, min cmb#15 [Ferrocite Plus] 1 cap PO QAM 12/10/20 [History] oxcarbazepine 600 mg PO BID 12/10/20 [History] Review of Systems Constitutional: Other (see HPI) Eyes: No Symptoms Reported ENT: No Symptoms Reported Respiratory: No Symptoms Reported Cardiovascular: No Symptoms Reported Gastrointestinal: No Symptoms Reported Genitourinary: No Symptoms Reported Musculoskeletal: No Symptoms Reported Skin: No Symptoms Reported Neurological: No Symptoms Reported Physical Exam Vital Signs: Temperature 98.7 F Pulse Rate [Right Radial] 72 Pulse Rate 101 Respiratory Rate 18 Blood Pressure [Right Calf] 163/66 Blood Pressure [Right Arm] 132/61 Blood Pressure 133/70 O2 Sat by Pulse Oximetry 99 Oriented: Person and Place Eyes: Normal Ear: Normal Nose: Normal Throat: Other (swelling) Respiratory: Clear Throughout Cardiovascular: Normal : Normal Auscultation: Bowel Sounds: Normal Palpation: Normal Tenderness: Normal Musculoskeletal: Normal Psychiatric: Anxiety and Depression Mood Description: Flat Speech Pattern: Clear Plan Plan: Will need further evaluation of the aortic arch vessels and carotid arteries. Will need CT of aortic arch and the carotid arteries as well as b/l carotid ultrasound.
[2020-12-12] MEDS: SYNTHROID 50 mcg TAB PO SCH (05:57)
[2020-12-12] MEDS ORDERED: TRILEPTAL PO ONE ×2 (08:01→20:26)
[2020-12-12] MEDS: ZyrTEC TAB 10 MG PO SCH (09:17)
[2020-12-12] MEDS: ASPIRIN PO SCH (09:17)
[2020-12-12] MEDS: PLAVIX PO SCH (09:18)
[2020-12-12] MEDS: NEURONTIN CAP 100 MG PO SCH ×2 (09:18→21:07)
[2020-12-12] MEDS: TRILEPTAL PO SCH ×2 (09:19→21:07)
[2020-12-12] MEDS: LOPRESSOR TAB 25 MG PO SCH ×2 (09:19→21:08)
[2020-12-12] MEDS: SOLU-Medrol 125 MG VIAL IVP SCH ×2 (09:20→21:08)
[2020-12-12] MEDS: REQUIP PO SCH ×2 (09:20→21:08)
[2020-12-12] MEDS: TOPAMAX TAB 100 MG PO SCH ×2 (09:20→21:07)
[2020-12-12] MEDS: PROTONIX TAB 40 MG PO SCH (09:21)
[2020-12-12] MEDS: CELEBREX PO SCH (09:21)
[2020-12-12] MEDS: COLACE CAP 100 MG PO SCH ×2 (09:21→21:06)
[2020-12-12] MEDS: NORVASC TAB 10 MG PO SCH (09:21)
[2020-12-12] MEDS: ALDACTONE TAB 25 MG PO SCH (09:22)
--- NOTE | 2020-12-12 10:33 | PCM.PROG ---
Progress Note Progress Note for Day of Date of Exam: 12/12/20 Subjective Subjective: Patient seen at bedside, no acute events overnight. Reports doing better, lip swelling has improved. Denies respiratory distress or trouble swallowing. She was seen by Dr. Lopez yesterday and he had ordered CTA- chest and neck to evaluate further. Carotid U/S is also ordered. Labs: WBC 7.8 Hgb 12.2 Plt 122 BUN/Cr 19/0.71 CTA chest and neck: no pulmonary embolic disease, severe atherosclerosis. Left ICA 70%stenosis, Right ICA 40-50%. Thyroid nodule also seen. Plan: follow up vascular recommendations, Carotid U/S pending. Continue Solumedrol. Continue home medications. Monitor AM labs and imaging. Past Medical Family Social History Past Med/Fam/Surg Hx: No changes since H&P Allergies: Allergies No Known Drug Allergies Allergy (Verified 05/21/17 18:27) Review of Systems ROS: No change since H&P Vital Signs and I&O's Vital Signs: Temperature 98.4 F Pulse Rate [Right Radial] 80 Pulse Rate 101 Respiratory Rate 15 Blood Pressure [Right Calf] 163/66 Blood Pressure [Right Arm] 103/56 Blood Pressure 133/70 O2 Sat by Pulse Oximetry 97 Intake and Output: Intake & Output 12/09/20 12/10/20 12/11/20 12/12/20 23:59 23:59 23:59 23:59 Intake Total 375 / 375 2143 / 2143 1866 / 1866 Output Total 2 / 2 Balance 375 / 375 2141 / 2141 186 / 186 Physical Exam Oriented: Person and Place Eyes: Normal Ear: Normal Nose: Normal Throat: Other (swelling) Respiratory: Generalized and Diminished Cardiovascular: Normal Auscultation: Bowel Sounds: Normal Tenderness: Normal Skin: Decreased Turgur Musculoskeletal: Normal Psychiatric: Anxiety and Depression Mood Description: Calm Affect: Normal Speech Pattern: Clear, Appropriate and Delayed Laboratory and Diagnostics Result Diagrams: 12/11/20 14:14 12/11/20 14:14 Labs: Laboratory WBC 7.8 X10^3/uL (3.6-10.0) 12/11/20 14:14 RBC 3.92 X10^6/uL (3.5-5.4) 12/11/20 14:14 Hgb 12.2 g/dL (12.0-16.0) 12/11/20 14:14 Hct 36.6 % (36.0-47.0) 12/11/20 14:14 MCV 93.5 fL (80.0-100.0) 12/11/20 14:14 MCH 31.1 pg (27.0-34.0) 12/11/20 14:14 MCHC 33.3 g/dL (33.0-35.0) 12/11/20 14:14 RDW 13.3 % (11.6-16.5) 12/11/20 14:14 Plt Count 122 X10^3/uL (150.0-450.0) L 12/11/20 14:14 MPV 10.0 fL (7.4-11.0) 12/11/20 14:14 Neut % (Auto) 81.7 % (42.0-75.0) H 12/11/20 14:14 Lymph % (Auto) 9.5 % (21.0-51.0) L 12/11/20 14:14 [place] % (Auto) 8.6 % (0.0-13.0) 12/11/20 14:14 Eos % (Auto) 0.1 % (0.9-2.9) L 12/11/20 14:14 Baso % (Auto) 0.1 % (0.2-1.0) L 12/11/20 14:14 Neut # (Auto) 6.4 x10^3/uL (2.2-4.8) H 12/11/20 14:14 Lymph # (Auto) 0.7 X10^3/uL (1.3-2.9) L 12/11/20 14:14 [place] # (Auto) 0.7 x10^3/uL (0.3-0.8) 12/11/20 14:14 Eos # (Auto) 0.0 x10^3/uL (0.0-0.2) 12/11/20 14:14 Baso # (Auto) 0.0 X10^3/uL (0.0-0.1) 12/11/20 14:14 Absolute Nucleated RBC 0.0 /100WBC 12/11/20 14:14 Sodium 141 mmol/L (136-145) 12/11/20 14:14 Corrected Sodium 143 mmol/L (136-145) 12/11/20 14:14 Potassium 3.8 mmol/L (3.5-5.1) 12/11/20 14:14 Chloride 107 mmol/L (98-107) 12/11/20 14:14 Carbon Dioxide 21.5 mmol/L (21-32) 12/11/20 14:14 BUN 19 mg/dL (7-18) H 12/11/20 14:14 Creatinine 0.71 mg/dL (0.55-1.02) 12/11/20 14:14 Est GFR (MDRD) Af Amer > 60 (>60) 12/11/20 14:14 Est GFR (MDRD) Non-Af > 60 (>60) 12/11/20 14:14 Glucose 179 mg/dL (65-99) H 12/11/20 14:14 POC Glucose (mg/dL) 144 mg/dL (65-99) H 12/12/20 05:43 Calcium 9.2 mg/dL (8.5-10.1) 12/11/20 14:14 Corrected Calcium TNP 12/10/20 15:39 Total Bilirubin 0.40 mg/dL (0.2-1.0) 12/10/20 15:39 AST 19 Units/L (15-37) 12/10/20 15:39 ALT 25 Units/L (12-78) 12/10/20 15:39 Alkaline Phosphatase 71 Units/L (46-116) 12/10/20 15:39 Total Protein 7.8 g/dL (6.4-8.2) 12/10/20 15:39 Albumin 3.7 g/dL (3.4-5.0) 12/10/20 15:39 Globulin 4.1 g/dL (2.5-4.5) 12/10/20 15:39 Albumin/Globulin Ratio 0.9 Ratio (1.1-2.1) L 12/10/20 15:39 SARS-CoV-2 (PCR) Negative (NEGATIVE) 12/10/20 18:49 Influenza Type A (PCR) Negative (NEGATIVE) 12/10/20 18:49 Influenza Type B (PCR) Negative (NEGATIVE) 12/10/20 18:49 RSV (PCR) Negative (NEGATIVE) 12/10/20 18:49 Plan (1) Chest wall pain: Status: Acute (2) Edema of face: Status: Acute (3) Angioedema: Status: Acute Qualifiers: Encounter type: initial encounter Qualified Code(s): T78.3XXA - Angioneurotic edema, initial encounter (4) Carotid stenosis: Status: Acute Qualifiers: Laterality: right Qualified Code(s): I65.21 - Occlusion and stenosis of right carotid artery (5) COPD (chronic obstructive pulmonary disease): Status: Chronic Qualifiers: COPD type: unspecified COPD Qualified Code(s): J44.9 - Chronic obstructive pulmonary disease, unspecified (6) History of anemia: Status: Chronic (7) Anxiety: Status: Chronic (8) Squamous cell carcinoma of tongue: Status: Chronic (9) Chronic pain syndrome: Status: Acute
[2020-12-12 11:32] LABS: FREE T4 (FREE THYROXINE) 1.03 ng/dL (0.76-1.46); TSH (3RD GENERATION) 0.237 uIU/mL (0.358-3.74)
[2020-12-12] MEDS: NS 1000 ML 1,000 ML IV SCH ×2 (13:55→23:39)
[2020-12-12] MEDS: NYSTATIN SUSP PO SCH ×2 (17:01→21:09)
--- NOTE | 2020-12-12 18:09 | NOTE.SOAP ---
Soap Note Note for Day of Date of Exam: 12/12/20 Subjective Data Subjective Data: admitted for angioedema and I was asked to evaluate for abnormal flow in brachiocephalic artery artery and possible significatn carotid artery stenosis. Objective Data Temperature: 98.4 F Pulse Rate: 82 Respiratory Rate: 13 Blood Pressure: 164/63 O2 Sat by Pulse Oximetry: 98 Objective Data: Swelling of lips is less CTA of brachiocephalic artery shows 50 % stenosis and right ICA is < 50 . Question of left ICA with 70% stenosis%. Assessment Assessment: Await carotid u/s but will most likely mot need any surgical intervention of these. Recommend daily aspirin 81 mg. Plan Plan: as above
[2020-12-12] MEDS: LIPITOR TAB 40 MG PO SCH (21:07)
[2020-12-12] MEDS: SNACK - Diabetic Appropriate PO SCH (21:09)
[2020-12-13] MEDS: NS 1000 ML 1,000 ML IV SCH ×4 (02:30→15:50)
[2020-12-13] MEDS: SYNTHROID 50 mcg TAB PO SCH (05:43)
[2020-12-13 07:24] LABS: BASOPHILS % (AUTO) 0.1 % (0.2-1.0); EOSINOPHILS % (AUTO) 0.1 % (0.9-2.9); HEMATOCRIT 33.7 % (36.0-47.0); HEMOGLOBIN 11.1 g/dL (12.0-16.0); LYMPHOCYTES # (AUTO) 1.4 X10^3/uL (1.3-2.9); MEAN CORPUSCULAR HEMOGLOBIN 30.8 pg (27.0-34.0); MEAN CORPUSCULAR HGB CONC 32.9 g/dL (33.0-35.0); MEAN CORPUSCULAR VOLUME 93.8 fL (80.0-100.0); MEAN PLATELET VOLUME 9.4 fL (7.4-11.0); MONOCYTES # (AUTO) 1.1 x10^3/uL (0.3-0.8); MONOCYTES % (AUTO) 15.7 % (0.0-13.0); NEUTROPHILS # (AUTO) 4.6 x10^3/uL (2.2-4.8); NEUTROPHILS % (AUTO) 64.1 % (42.0-75.0); PLATELET COUNT 126 X10^3/uL (150.0-450.0); RED BLOOD COUNT 3.59 X10^6/uL (3.5-5.4); RED CELL DISTRIBUTION WIDTH 13.6 % (11.6-16.5); WHITE BLOOD COUNT 7.1 X10^3/uL (3.6-10.0)
[2020-12-13] MEDS ORDERED: TRILEPTAL PO ONE ×2 (07:45→20:26)
[2020-12-13 07:46] LABS: BLOOD UREA NITROGEN 27 mg/dL (7-18); CALCIUM 8.9 mg/dL (8.5-10.1); CARBON DIOXIDE 26.9 mmol/L (21-32); CHLORIDE 113 mmol/L (98-107); CREATININE 0.71 mg/dL (0.55-1.02); SODIUM 147 mmol/L (136-145); eGFR NON BLACK RACES > 60 (>60)
[2020-12-13] MEDS: ALDACTONE TAB 25 MG PO SCH (09:02)
[2020-12-13] MEDS: PROTONIX TAB 40 MG PO SCH (09:03)
[2020-12-13] MEDS: REQUIP PO SCH ×2 (09:03→21:05)
[2020-12-13] MEDS: CELEBREX PO SCH (09:04)
[2020-12-13] MEDS: COLACE CAP 100 MG PO SCH ×2 (09:04→21:05)
[2020-12-13] MEDS: LOPRESSOR TAB 25 MG PO SCH ×2 (09:05→21:05)
[2020-12-13] MEDS: NEURONTIN CAP 100 MG PO SCH ×2 (09:05→21:05)
[2020-12-13] MEDS: ZyrTEC TAB 10 MG PO SCH (09:05)
[2020-12-13] MEDS: NORVASC TAB 10 MG PO SCH (09:06)
[2020-12-13] MEDS: ASPIRIN PO SCH (09:07)
[2020-12-13] MEDS: TOPAMAX TAB 100 MG PO SCH ×2 (09:07→21:05)
--- NOTE | 2020-12-13 09:07 | US ---
INDICATIONSTHYROID NODULECOMPARISONCT scan November 06, 2019TECHNIQUEMultiple france scale images of the thyroid were obtained.FINDINGSthe right lobe of the thyroid measures [2.34 cm transverse by 2.3 AP by 4.7 cm in length. A small complex cyst measuring 0.36 x 0.45 by 0.50 cm consistent with a colloid cyst is observed.]. The left lobe of the thyroid measures [ 2.2 cm transverse by 2 cm AP x 4.9 cm in length..The thyroid isthmus contains a small peripherally calcified nodule measuring 0.34 x 0.53 by 0.45 cm which is unchanged from the CT scan November 06, 2019. The isthmus measures 3 mm in thickness.IMPRESSION[Small colloid cyst in the right lobe of the thyroidSmall stable calcification the right-sided the isthmus of the thyroid unchanged from November 06, 2019 CT.No abnormalities in the left lobe of thyroid.Electronically signed by: CARIE BRASHER (Dec 13, 2020 09:04:32)
[2020-12-13] MEDS: SOLU-Medrol 125 MG VIAL IVP SCH (09:08)
[2020-12-13] MEDS: NYSTATIN SUSP PO SCH ×3 (09:09→21:17)
[2020-12-13] MEDS: PLAVIX PO SCH (09:10)
--- NOTE | 2020-12-13 09:22 | VAS ---
HISTORYABNORMAL CT. CAROTID STENOSIS, DIZZINESSSTUDYCAROTID USCOMPARISONNoneTECHNIQUEMultiple france scale and color flow Doppler images of the right and left carotid arterial system were obtained. The vertebral arterial system was evaluated as well.FINDINGSNormal color flow Doppler is seen throughout the right and left carotid arterial system. No hemodynamically significant stenosis is seen based on velocity criteria. I real-time scanning no significant plaquing stenoses or tortuosity are observed. Waveforms are normal and peak systolic velocities are in the normal range maximal 77 cm/second in the proximal right ICA. Antegrade flow is seen in the right vertebral artery. Peak systolic velocity in the proximal ECA is 99 cm/second.On real-time scanning in the left carotid system common no plaquing stenoses or tortuosity are observed. Waveforms are normal. Peak systolic velocities are in the normal range maximal 102 cm per 2nd in the ECA and 107 cm/second in the distal left ICA. Antegrade flow is seen in the left vertebral artery. The right and left vertebral arteries demonstrate antegrade flow.IMPRESSIONNo hemodynamically significant stenosis by real-time scanning waveforms peak systolic velocities and systolic velocity ratios.Antegrade flow is seen in both vertebral arteries.Electronically signed by: CARIE BRASHER (Dec 13, 2020 09:21:05)
[2020-12-13] MEDS: TRILEPTAL PO SCH ×2 (14:03→21:05)
--- NOTE | 2020-12-13 20:47 | NOTE.SOAP ---
Soap Note Note for Day of Date of Exam: 12/13/20 Subjective Data Subjective Data: Swelling of lips and face slowly improving Objective Data Temperature: 98.8 F Pulse Rate: 70 Respiratory Rate: 18 Blood Pressure: 128/66 O2 Sat by Pulse Oximetry: 98 Objective Data: Neck stable. Carotid US shows no increase in velocity - normal Assessment Assessment: with no significant stenosis of arch or neck vessels on CTA and U/S, no surgical intervention indicated. Recommend daily aspirin 81 mg daily. Plan Plan: see assessment
[2020-12-13] MEDS: LIPITOR TAB 40 MG PO SCH (21:05)
[2020-12-13] MEDS: SOLU-Medrol 40 MG VIAL IVP SCH (21:06)
[2020-12-13] MEDS: SNACK - Diabetic Appropriate PO SCH (21:17)
[2020-12-14] MEDS: NS 1000 ML 1,000 ML IV SCH ×2 (02:18→03:20)
[2020-12-14 06:19] LABS: BASOPHILS % (AUTO) 0.2 % (0.2-1.0); EOSINOPHILS % (AUTO) 0.1 % (0.9-2.9); HEMATOCRIT 35.5 % (36.0-47.0); HEMOGLOBIN 11.8 g/dL (12.0-16.0); LYMPHOCYTES # (AUTO) 1.6 X10^3/uL (1.3-2.9); LYMPHOCYTES % (AUTO) 20.1 % (21.0-51.0); MEAN CORPUSCULAR HEMOGLOBIN 31.3 pg (27.0-34.0); MEAN CORPUSCULAR HGB CONC 33.2 g/dL (33.0-35.0); MEAN CORPUSCULAR VOLUME 94.4 fL (80.0-100.0); MEAN PLATELET VOLUME 9.4 fL (7.4-11.0); MONOCYTES # (AUTO) 1.1 x10^3/uL (0.3-0.8); MONOCYTES % (AUTO) 14.4 % (0.0-13.0); NEUTROPHILS # (AUTO) 5.2 x10^3/uL (2.2-4.8); NEUTROPHILS % (AUTO) 65.2 % (42.0-75.0); PLATELET COUNT 134 X10^3/uL (150.0-450.0); RED BLOOD COUNT 3.76 X10^6/uL (3.5-5.4); RED CELL DISTRIBUTION WIDTH 13.4 % (11.6-16.5); WHITE BLOOD COUNT 7.9 X10^3/uL (3.6-10.0)
[2020-12-14] MEDS: SYNTHROID 50 mcg TAB PO SCH (06:23)
[2020-12-14 06:47] LABS: ALANINE AMINOTRANSFERASE 37 Units/L (12-78); ALKALINE PHOSPHATASE 73 Units/L (46-116); ASPARTATE AMINO TRANSFERASE 26 Units/L (15-37); BLOOD UREA NITROGEN 26 mg/dL (7-18); CARBON DIOXIDE 24.8 mmol/L (21-32); CHLORIDE 112 mmol/L (98-107); COR CA(FOR HYPOALB) 9.8 mg/dL (8.5-10.1); COR NA(FOR HYPERGLY) 145 mmol/L (136-145); SODIUM 145 mmol/L (136-145); TOTAL PROTEIN 6.7 g/dL (6.4-8.2); eGFR NON BLACK RACES > 60 (>60)
[2020-12-14] MEDS ORDERED: TRILEPTAL PO ONE (07:57)
--- NOTE | 2020-12-14 09:04 | PCM.PROG ---
Progress Note - Progress Note for Day of Date of Exam: 12/13/20 - Subjective Subjective: WAS ADMITTED FOR TREATMENT OF ANGIOEDEMA, EDEMA OF FACE, CAROTID STENOSIS, AND CHEST WALL PAIN. SHE IS A RESIDENT OF [facility]. PMH OF COPD, ANEMIA, ANXIETY, SQUAMOUS CELL CARCINOMA OF TONGUE, ARTHRITIS, HTN, HLD, HYPOTHYROIDISM, AND CHRONIC PAIN SYNDROME. TODAY, SHE IS ALERT AND ORIENTED, LYING IN BED ON MORNING ROUNDS. SHE CONTINUES WITH SWELLING TO THE LIPS. PATIENT REPORTS THAT IT HAS SLIGHTLY IMPROVED SINCE SHE WAS ADMITTED. SHE ALSO CONTINUES WITH TENDERNESS TO BOTH SIDES OF NECK. HER VITALS THIS MORNING ARE: 98.6-68-18-99%-125/60. LABS WERE OBTAINED. ABNORMAL LAB VALUES INCLUDE THE FOLLOWING: HGB 11.1, HCT 33.7, PLT COUNT 126, SODIUM 147, CHLORIDE 113, BUN 27, GLUCOSE 105. CT OF SOFT TISSUE AND NECK REVEALED: Complete loss of dentition. Cortical bone erosions are seen within the bilateral tooth fossae of the bodies of the mandible which could represent osteomyelitis in the appropriate clinical setting. Nonspecific bilateral diffuse subcutaneous soft tissue edema/swelling. Mild chronic bilateral maxillary sinusitis, right greater than left, marked by mucoperiosteal thickening. 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 Severe atherosclerotic calcified pleural plaques are seen at the carotid bulbs with potential for hemodynamically significant stenoses of the ICA origins bilaterally. Note tortuous ICAs coursing within the retropharyngeal soft tissues. CHEST CTA REVEALED: Severe atherosclerotic disease of the brachiocephalic trunk and left common carotid artery origins, with estimated mild (less than 50% brachiocephalic trunk luminal stenosis and estimated 50% left common carotid artery origin stenosis, of uncertain hemodynamic significance. 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 SHE IS CURRENTLY RECEIVING NORMAL SALINE AT 80 ML/HR, SOLU-MEDROL 60MG IV Q12H, HUMULIN R SLIDING SCALE, AND HER HOME MEDICATIONS (INCLUDING PLAVIS AND LIPITOR) WERE RESUMED. WE WILL CONTINUE WITH CURRENT PLAN OF CARE TODAY. OTHERWISE, WE WILL FOLLOW UP WITH AM LABS AND CONTINUE TO MONITOR. TIME SPENT ON CLINICAL ASSESSMENT, REVIEWING LABS AND IMAGING, DECISION MAKING, AND DOCUMENTATION GREATER THAN 45 MINUTES. - Past Medical Family Social History Past Med/Fam/Surg Hx: No changes since H&P Allergies: Allergies No Known Drug Allergies Allergy (Verified 05/21/17 18:27) - Review of Systems ROS: No change since H&P - Vital Signs and I&O's Vital Signs: Temperature 98.2 F Pulse Rate [Right Radial] 73 Pulse Rate 70 Respiratory Rate 18 Blood Pressure [Right Calf] 163/66 Blood Pressure [Right Arm] 127/59 Blood Pressure 128/66 O2 Sat by Pulse Oximetry 97 Intake and Output: Intake & Output 12/11/20 12/12/20 12/13/20 12/14/20 11:59 11:59 11:59 11:59 Intake Total 1075 / 1075 3309 / 3309 2459 / 2459 2133 / 2133 Output Total 2 / 2 Balance 1075 / 1075 3307 / 3307 2459 / 2459 2133 / 2133 - Physical Exam Oriented: Normal Eyes: Normal Ear: Normal Nose: Normal Throat: Other (swelling) Respiratory: Generalized, Diminished Cardiovascular: Normal : Normal Auscultation: Bowel Sounds: Normal Palpation: Normal Tenderness: Normal Skin: Decreased Turgur Musculoskeletal: Normal Psychiatric: Anxiety, Depression Mood Description: Calm Affect: Normal Speech Pattern: Clear, Appropriate, Delayed - Laboratory and Diagnostics Result Diagrams: 12/14/20 05:54 12/14/20 05:54 Labs: Laboratory WBC 7.9 X10^3/uL (3.6-10.0) 12/14/20 05:54 RBC 3.76 X10^6/uL (3.5-5.4) 12/14/20 05:54 Hgb 11.8 g/dL (12.0-16.0) L 12/14/20 05:54 Hct 35.5 % (36.0-47.0) L 12/14/20 05:54 MCV 94.4 fL (80.0-100.0) 12/14/20 05:54 MCH 31.3 pg (27.0-34.0) 12/14/20 05:54 MCHC 33.2 g/dL (33.0-35.0) 12/14/20 05:54 RDW 13.4 % (11.6-16.5) 12/14/20 05:54 Plt Count 134 X10^3/uL (150.0-450.0) L 12/14/20 05:54 MPV 9.4 fL (7.4-11.0) 12/14/20 05:54 Neut % (Auto) 65.2 % (42.0-75.0) 12/14/20 05:54 Lymph % (Auto) 20.1 % (21.0-51.0) L 12/14/20 05:54 [place] % (Auto) 14.4 % (0.0-13.0) H 12/14/20 05:54 Eos % (Auto) 0.1 % (0.9-2.9) L 12/14/20 05:54 Baso % (Auto) 0.2 % (0.2-1.0) 12/14/20 05:54 Neut # (Auto) 5.2 x10^3/uL (2.2-4.8) H 12/14/20 05:54 Lymph # (Auto) 1.6 X10^3/uL (1.3-2.9) 12/14/20 05:54 [place] # (Auto) 1.1 x10^3/uL (0.3-0.8) H 12/14/20 05:54 Eos # (Auto) 0.0 x10^3/uL (0.0-0.2) 12/14/20 05:54 Baso # (Auto) 0.0 X10^3/uL (0.0-0.1) 12/14/20 05:54 Absolute Nucleated RBC 0.0 /100WBC 12/14/20 05:54 Sodium 145 mmol/L (136-145) 12/14/20 05:54 Corrected Sodium 145 mmol/L (136-145) 12/14/20 05:54 Potassium 4.5 mmol/L (3.5-5.1) 12/14/20 05:54 Chloride 112 mmol/L (98-107) H 12/14/20 05:54 Carbon Dioxide 24.8 mmol/L (21-32) 12/14/20 05:54 BUN 26 mg/dL (7-18) H 12/14/20 05:54 Creatinine 0.70 mg/dL (0.55-1.02) 12/14/20 05:54 Est GFR (MDRD) Af Amer > 60 (>60) 12/14/20 05:54 Est GFR (MDRD) Non-Af > 60 (>60) 12/14/20 05:54 Glucose 115 mg/dL (65-99) H 12/14/20 05:54 POC Glucose (mg/dL) 99 mg/dL (65-99) 12/14/20 05:55 Calcium 9.0 mg/dL (8.5-10.1) 12/14/20 05:54 Corrected Calcium 9.8 mg/dL (8.5-10.1) 12/14/20 05:54 Total Bilirubin 0.20 mg/dL (0.2-1.0) 12/14/20 05:54 AST 26 Units/L (15-37) 12/14/20 05:54 ALT 37 Units/L (12-78) 12/14/20 05:54 Alkaline Phosphatase 73 Units/L (46-116) 12/14/20 05:54 C-Reactive Protein 21.80 mg/L (0-3.0) H 12/14/20 05:54 Total Protein 6.7 g/dL (6.4-8.2) 12/14/20 05:54 Albumin 3.0 g/dL (3.4-5.0) L 12/14/20 05:54 Globulin 3.7 g/dL (2.5-4.5) 12/14/20 05:54 Albumin/Globulin Ratio 0.8 Ratio (1.1-2.1) L 12/14/20 05:54 Free T4 1.03 ng/dL (0.76-1.46) 12/12/20 11:00 TSH 3rd Generation 0.237 uIU/mL (0.358-3.74) L 12/12/20 11:00 SARS-CoV-2 (PCR) Negative (NEGATIVE) 12/10/20 18:49 Influenza Type A (PCR) Negative (NEGATIVE) 12/10/20 18:49 Influenza Type B (PCR) Negative (NEGATIVE) 12/10/20 18:49 RSV (PCR) Negative (NEGATIVE) 12/10/20 18:49 - Plan (1) Angioedema Status: Acute Qualifiers: Encounter type: initial encounter Qualified Code(s): T78.3XXA - Angioneurotic edema, initial encounter (2) Edema of face Status: Acute (3) Carotid stenosis Status: Acute Qualifiers: Laterality: right (4) COPD (chronic obstructive pulmonary disease) Status: Chronic Qualifiers: COPD type: unspecified COPD (5) History of anemia Status: Chronic (6) Anxiety Status: Chronic (7) Chronic pain syndrome Status: Acute (8) Squamous cell carcinoma of tongue Status: Chronic (9) Diabetes mellitus Status: Chronic Qualifiers: Diabetes mellitus type: type 2 Diabetes mellitus 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
[2020-12-14] MEDS: NEURONTIN CAP 100 MG PO SCH (10:00)
[2020-12-14] MEDS: LOPRESSOR TAB 25 MG PO SCH (10:00)
[2020-12-14] MEDS: NORVASC TAB 10 MG PO SCH (10:00)
[2020-12-14] MEDS: COLACE CAP 100 MG PO SCH (10:00)
[2020-12-14] MEDS: ZyrTEC TAB 10 MG PO SCH (10:00)
[2020-12-14] MEDS: TRILEPTAL PO SCH (10:00)
[2020-12-14] MEDS: ASPIRIN PO SCH (10:00)
[2020-12-14] MEDS: CELEBREX PO SCH (10:00)
[2020-12-14] MEDS: TOPAMAX TAB 100 MG PO SCH (10:00)
[2020-12-14] MEDS: PROTONIX TAB 40 MG PO SCH (10:00)
[2020-12-14] MEDS: REQUIP PO SCH (10:00)
[2020-12-14] MEDS: ALDACTONE TAB 25 MG PO SCH (10:54)
[2020-12-14] MEDS: PLAVIX PO SCH (10:56)
[2020-12-14] MEDS ORDERED: LOVENOX INJ 40 MG SYR SC SCH (11:00)
[2020-12-14] MEDS: SOLU-Medrol 40 MG VIAL IVP SCH (11:00)
[2020-12-14 13:19] VITALS: BP 146/69
[2020-12-14] MEDS: NYSTATIN SUSP PO SCH ×2 (13:22→13:23)
== END 2020-12-14 13:40 | DRG 916 ==
LOC: ER 14:38 → MED/SURG 20:24
PROVIDERS: ADMIT Family Medicine; ATTEND Internal Medicine
DX: K21.9 Gastro-esophageal reflux disease without esophagitis; R79.82 Elevated C-reactive protein (CRP); J44.9 Chronic obstructive pulmonary disease, unspecified; R07.89 Other chest pain; F41.8 Other specified anxiety disorders; E11.65 Type 2 diabetes mellitus with hyperglycemia; Z20.822 Contact with and (suspected) exposure to COVID-19; I10 Essential (primary) hypertension; R22.0 Localized swelling, mass and lump, head; I65.21 Occlusion and stenosis of right carotid artery; Z85.818 Personal history of malignant neoplasm of other sites of lip, oral cavity, and pharynx; E78.2 Mixed hyperlipidemia; Z79.4 Long term (current) use of insulin; T78.3XXA Angioneurotic edema, initial encounter